=== PATIENT | male | born 1990 | race Caucasian/White ===

== ENCOUNTER 2017-06-26 19:00 | Inpatient (IN) | payer MEDICAID, SELFPAY ==
[2017-06-26 19:03] VITALS: BP 123/88; PULSE 105; RESP 18; TEMP 37; O2SAT 97
--- NOTE | 2017-06-26 20:20 | ED.VISSUMM ---
- ER Visit Summary Date of Service: 06/26/17 Chief Complaint: Requesting detox for alcohol and drug abuse. History of Present Illness: The patient is a 26 M history of depression for which he was admitted to [facility] around . Patient states he presents today because looking for help for drug abuse primarily methamphetamines and also alcohol abuse. He denies any recent illness. He is chronically depressed but is not acutely suicidal at this time. Physical Examination: Well appearing young male. Vital signs are stable afebrile. Pulse ox 97% room air no signs of hypoxia. HEENT exam atraumatic. Pupils round reactive light. Neck nontender no lymphadenopathy. Lungs clear to auscultation bilaterally. Heart regular rhythm rate about 105 no murmur. Chest wall nontender. Abdomen soft nontender. He is moving all 4 extremities. There is no signs of injuries or lacerations. Back exam is normal. Neurologically is awake alert with no focal motor deficits. Test Results: [] Emergency Department Course and Treatment: I will speak to the hospitalist for possible admission for detox. Treatment Plan: [] Disposition: Admission Impression: History of drug and alcohol abuse requesting detox History of depression This note was generated with [employer] dictation software. It may contain incorrect words, spelling, and punctuation that were not noted in review of the chart prior to signing ED Disposition - Plan for ED Patient: Chief Complaint: Subst Abuse Referrals: Care Physician,No Primary [Primary Care Provider] -
--- NOTE | 2017-06-26 20:58 | HP.PCM_ITS ---
Problem List (1) Alcohol abuse Status: Acute (2) Cocaine abuse Status: Chronic (3) Methamphetamine abuse Status: Chronic (4) Heroin abuse Status: Chronic (5) Antisocial personality disorder Status: Chronic (6) Depression Status: Chronic History of Present Illness Date of Admission: 06/26/17 Chief Complaint: requesting detox from drugs and alcohol The patient is a 26 year old male patient who presents to the ER for assistance with drug and alcohol rehabilitation. He last consumed six sots of alcohol at noon today. He drinking daily up to 30 beers and/or a bottle of hard liquor and drinks until he blacks out daily. He gets the shakes after not consuming alcohol. The patient was discharged from [facility] one and a half weeks ago for depression and suicidal thinking. Today he admits to having depressive thought but denies active intent to harm himself or others. He last consumed methamphetamine, cocaine and heroine one month ago. He currently takes Zyprexa and Prozac for his psychiatric diagnoses. He will enter the [facility] program. Past Medical History Past Medical History (Chronic Problems): Chronic Problems Cocaine abuse (Chronic) Methamphetamine abuse (Chronic) Heroin abuse (Chronic) Antisocial personality disorder (Chronic) Depression (Chronic) Allergies Penicillins Allergy (Verified 12/01/15 12:46) Rash Home Medications: Ambulatory Orders Medication Instructions Recorded Fluoxetine [Prozac] 20 mg PO DAILY 06/26/17 Olanzapine [Zyprexa] 10 mg PO BID 06/26/17 Lives: Homeless Smoking Status: Current every day smoker Alcohol: Heavy - *Family History Maternal History Items: No pertinent history Review of Systems Constitutional: Denies: Chills, Fever, Weight Change HEENT: Denies: Head Aches, Sinus Congestion, Sinus Drainage Cardiovascular: Denies: Chest Pain, Palpitations Respiratory: Denies: Cough, Shortness of breath at rest, Sputum production Gastrointestinal: Denies: Abdominal Pain, Nausea, Vomiting Genitourinary: Denies: Dysuria Musculoskeletal: Denies: Joint Pain, Joint Tenderness Skin: Denies: Rash, Wounds Neurological: Denies: Numbness, Tingling, Focal weakness Psychiatric: Reports: Anxiety, Depression, Suicidal Ideations - no intent at this time. Denies: Homicidal Ideations Hematologic/ Lymphatic: Denies: Easy Bruising, Easy Bleeding VTE Information - Inpt Only VTE Present on Admission: No VTE Mechan Device Prophylaxis: None VTE Pharm Prophylaxis ordered?: No Patient Problems: Active and Suspected Problems Alcohol abuse (Acute) - Physical Exam General: Alert, Oriented x3, Cooperative HEENT: Atraumatic, Normocephalic Neck: Supple Lungs: Clear to auscultation, Normal air movement Cardiovascular: Regular rate, No murmurs Abdomen: Bowel Sounds Present, Soft, Non Tender Extremities: No edema, Capillary Refill Less than 3 Seconds Skin: No rashes, No breakdown Musculoskeletal: No Tenderness to Palpation of Joints or Extremities Neurological: Neuro grossly intact Psych/Mental Status: Appropriate, Depressed Vital Signs Temp Pulse Resp BP Pulse Ox 98.6 F 105 H 18 123/88 H 97 06/26/17 19:03 06/26/17 19:03 06/26/17 19:03 06/26/17 19:03 06/26/17 19:03 Oxygen Delivery Method Room Air Weight: 140 lb Body Mass Index (BMI) 20.0 Assessment/Plan Active and Suspected Problems Alcohol abuse (Acute) Chronic Problems Cocaine abuse (Chronic) Methamphetamine abuse (Chronic) Heroin abuse (Chronic) Antisocial personality disorder (Chronic) Depression (Chronic) Plan - admit to general medical floor - consult [facility] counselor - CIWA protocol including benzodiazepine, Thiamine and folate - Pt reminded this is voluntary and agrees to go through the detoxification process. - continue zyprexa and prozac - CBC, BMP and SLIV
[2017-06-26 21:48] VITALS: BP 121/77; BP 121/87; PULSE 87; RESP 14; RESP 18; TEMP 36.7; O2SAT 98
[2017-06-26 22:30] VITALS: BMI 20.9
[2017-06-26 22:34] VITALS: BP 116/63; PULSE 68; RESP 16; TEMP 36.4
[2017-06-26 22:39] LABS: AST(SGOT) 47 U/L (15-37); Alanine Aminotransfer ALT/SGPT 81 U/L (12-78); Albumin, Serum 3.7 g/dL (3.4-5.0); Alkaline Phosphatase 76 U/L (45-117); Bilirubin, Direct 0.05 mg/dL (0.00-0.30); Globulin 3.8 g/dL (2.2-4.2); Glucose 109 mg/dL (70-110); Protein, Total 7.5 g/dL (6.4-8.2)
[2017-06-26 22:44] VITALS: BMI 20.9
[2017-06-26 22:50] LABS: Alcohol, Blood (Medical)-Serum < 3.0 mg/dL
[2017-06-26 22:50] LABS: Amphetamine Urine VISTA NEGATIVE (<1000 ng/mL); Barbiturate Urine VISTA NEGATIVE (< 200 ng/mL); Benzodiazepine Urine VISTA NEGATIVE (< 200 ng/mL); Cocaine Urine VISTA NEGATIVE (< 300 ng/mL); Ecstacy Urine VISTA NEGATIVE (< 500 ng/mL); Methadone Urine VISTA NEGATIVE (< 300 ng/mL); PCP Urine VISTA NEGATIVE (< 25 ng/mL); THC Urine VISTA POSITIVE (< 50 ng/mL); Vista UDS pH Range 6
[2017-06-27] MEDS: LORazepam 1 MG Tablet 2 MG PO ×4 (04:00→20:59)
[2017-06-27] MEDS: 0.9% NaCl Peripheral Flush Adult/Peds IV (04:00)
[2017-06-27 04:02] VITALS: BP 107/65; PULSE 77; RESP 16; TEMP 36.1
[2017-06-27 09:08] VITALS: BP 113/66; PULSE 67; RESP 16; TEMP 36.5; O2SAT 100
[2017-06-27] MEDS: Folic Acid 1 MG Tablet PO (09:13)
[2017-06-27] MEDS: OLANZapine 10 MG Tablet PO ×2 (09:13→21:00)
[2017-06-27] MEDS: Thiamine Hydrochloride 100 MG Tablet PO ×2 (09:13→18:26)
[2017-06-27] MEDS: FLUoxetine 20 MG Capsule PO (09:13)
--- NOTE | 2017-06-27 11:04 | PN_ITS ---
<Judy Briseno - Last Filed: 06/27/17 11:04> Patient Problems: Active and Suspected Problems Alcohol abuse (Acute) Subjective: Patient seen and examined. Resting in bed in no acute distress. He is drowsy and falling asleep during conversation. Complains of mild muscle cramping and anxiety. Denies nausea, vomiting. Denies suicidal thoughts. Denies other complaints. - Physical Exam General: Cooperative, No apparent distress, - - Drowsy HEENT: Atraumatic, PERRLA, EOMI, Normocephalic Neck: Supple, No JVD, Negative Carotid Bruits Lungs: Clear to auscultation, Normal air movement Cardiovascular: Regular rate, Regular Rhythm, Normal S1, Normal S2, No murmurs Abdomen: Bowel Sounds Present, Soft, Non Tender Extremities: No clubbing, No cyanosis, No edema, Capillary Refill Less than 3 Seconds Skin: No rashes, No breakdown Musculoskeletal: No Tenderness to Palpation of Joints or Extremities Neurological: Cranial nerves II-XII grossly intact, Neuro grossly intact Psych/Mental Status: Normal Affect, Appropriate Vital Signs Temp Pulse Resp BP Pulse Ox 97.7 F L 67 16 113/66 100 06/27/17 09:08 06/27/17 09:08 06/27/17 09:08 06/27/17 09:08 06/27/17 09:08 Oxygen Delivery Method Room Air Weight: 66.1 kg Body Mass Index (BMI) 20.9 Intake and Output for Last 24 Hours 06/25/17 06/26/17 06/27/17 23:59 23:59 23:59 Intake Total 250 / 250 Balance 250 / 250 Assessment/Plan Active and Suspected Problems Alcohol abuse (Acute) Patient is a 26-year-old male admitted 06/26/2017 due to withdrawal from multi- substance abuse. He has a past medical history of antisocial personality disorder and depression. 1. Acute alcohol withdrawal/alcohol abuse-CIWA protocol. Continue thiamine, folic acid, and multivitamin. AST/ALT slightly elevated. 2. Acute opioid withdrawal/opioid abuse/multi-substance abuse-urine tox screen positive for cannabinoids. Medical stabilization per protocol. Patient states he is working with [facility] to be admitted to inpatient treatment program at discharge. Currently having only mild withdrawal symptoms of mild muscle cramps and anxiety. 3. Antisocial personality disorder/depression-continue fluoxetine and olanzapine. 4. Recent inpatient admission for depression/suicidal ideations-denies current suicidal thoughts. Continue to monitor. DVT prophylaxis-SCDs. This patient was seen by NIGEL Ring under the supervision of Dr. Woodruff. <Richard Woodruff - Last Filed: 06/27/17 16:31> - Physical Exam General: Cooperative, No apparent distress, - - Drowsy. Nearly dozes off several times during the encounter. HEENT: Atraumatic, Normocephalic Lungs: Clear to auscultation, Normal air movement, No rhonchi, No wheeze Cardiovascular: Regular rate, Regular Rhythm, Normal S1, Normal S2 Abdomen: Bowel Sounds Present, Soft, Non Tender, Non-Distended Extremities: No edema, No Calf Tenderness Psych/Mental Status: Normal Affect, Appropriate Vital Signs Temp Pulse Resp BP Pulse Ox 36.5 C L 77 18 114/68 99 06/27/17 13:30 06/27/17 13:30 06/27/17 13:30 06/27/17 13:30 06/27/17 13:28 Oxygen Delivery Method Room Air Weight: 66.1 kg Body Mass Index (BMI) 20.9 Intake and Output for Last 24 Hours 06/25/17 06/26/17 06/27/17 23:59 23:59 23:59 Intake Total 730 / 730 Balance 730 / 730 Assessment/Plan Patient seen and examined independently. Agree with the above note by the nurse practitioner. 1. Acute alcohol withdrawal: Patient on medical stabilization protocol with Ativan. Patient not in florid alcohol withdrawal or DTs at this time. Patient states that he has was drinking a bottle of 70 proof liquor daily. Clinically the patient is appearing very stable at this time. Patient will continue to be monitored to see if there is any regression or if patient is remaining stable or improving. Will reevaluate on the and based on his withdrawal symptoms disposition will be determined on a daily basis. Code Visit Inpatient E&M: 17300 Subs Hosp L2
[2017-06-27 13:28] VITALS: BP 114/68; PULSE 77; RESP 18; TEMP 36.5; O2SAT 99
[2017-06-27 13:30] VITALS: BP 114/68; PULSE 77; RESP 18; TEMP 36.5
[2017-06-27 18:33] VITALS: BP 114/68; PULSE 77; RESP 18; TEMP 36.5
[2017-06-27 20:58] VITALS: BP 116/76; PULSE 100; RESP 16; TEMP 36.7
[2017-06-28] VITALS (8 sets, daily range): BP systolic 110–136; BP diastolic 67–82; PULSE 79–116; RESP 16–18; TEMP 35.8–37.3; O2SAT 97–98
[2017-06-28] MEDS: LORazepam 1 MG Tablet 2 MG PO ×2 (02:27→09:07)
[2017-06-28] MEDS: Folic Acid 1 MG Tablet PO (09:06)
[2017-06-28] MEDS: Thiamine Hydrochloride 100 MG Tablet PO ×2 (09:07→17:40)
[2017-06-28] MEDS: Multivitamins,Therapeutic Tablet 1 TABLET PO (09:07)
[2017-06-28] MEDS: OLANZapine 10 MG Tablet PO ×2 (09:07→21:19)
[2017-06-28] MEDS: FLUoxetine 20 MG Capsule PO (09:07)
--- NOTE | 2017-06-28 10:14 | PCM.DC ---
- Discharge Diagnoses Current Active Problems: Current Active and Chronic Problems Alcohol abuse (Acute) Cocaine abuse (Chronic) Methamphetamine abuse (Chronic) Heroin abuse (Chronic) Antisocial personality disorder (Chronic) Depression (Chronic) You will use the following diet at home:: No restrictions Discharge Activity: Return to Normal Activity Call your doctor if you observe: Shortness of breath, Dizziness, Fainting spells, Chest pain, Increased palpitations (irregular heartbeat) Allergies/Adverse Reactions: Allergies Penicillins Allergy (Verified 12/01/15 12:46) Rash Medications to take at Discharge Fluoxetine [Prozac] 20 mg PO DAILY 06/26/17 Olanzapine [Zyprexa] 10 mg PO BID 06/26/17 Primary Care Physician: Care Physician,No Primary [Primary Care Provider] - Please follow up with your Primary Care Physician in: 1-2 Weeks Proposed Discharge Date: 06/28/17
--- NOTE | 2017-06-28 10:19 | DCINST_ITS ---
- Discharge Diagnoses Current Active Problems: Current Active and Chronic Problems Alcohol abuse (Acute) Cocaine abuse (Chronic) Methamphetamine abuse (Chronic) Heroin abuse (Chronic) Antisocial personality disorder (Chronic) Depression (Chronic) You will use the following diet at home:: No restrictions Discharge Activity: Return to Normal Activity Call your doctor if you observe: Shortness of breath, Dizziness, Fainting spells , Chest pain, Increased palpitations (irregular heartbeat) Allergies/Adverse Reactions: Allergies Penicillins Allergy (Verified 12/01/15 12:46) Rash Medications to take at Discharge Fluoxetine [Prozac] 20 mg PO DAILY 06/26/17 Olanzapine [Zyprexa] 10 mg PO BID 06/26/17 Primary Care Physician: Care Physician,No Primary [Primary Care Provider] - Please follow up with your Primary Care Physician in: 1-2 Weeks Proposed Discharge Date: 06/28/17
--- NOTE | 2017-06-28 10:20 | PCM.DC.SUM ---
<Judy Briseno - Last Filed: 06/28/17 10:28> Discharge Date and Diagnosis - Problem List Patient Problems: Active and Suspected Problems Alcohol abuse (Acute) Date of Admission: 06/26/17 Date of Discharge: 06/28/17 - Primary Discharge Diagnosis Active and Suspected Problems 1. Acute alcohol withdrawal/alcohol abuse 2. Opioid abuse/multi-substance abuse - Secondary Discharge Diagnosis Chronic Problems Cocaine abuse (Chronic) Methamphetamine abuse (Chronic) Heroin abuse (Chronic) Antisocial personality disorder (Chronic) Depression (Chronic) Hospital Course and Treatment Operations: None Procedures: None Summary of Care Provided: Patient is a 26-year-old male admitted 06/26/2017 due to withdrawal from multi-substance abuse. He has a past medical history of antisocial personality disorder and depression. 1. Acute alcohol withdrawal/alcohol abuse-CIWA 0 at discharge. No active withdrawal symptoms. Patient's plan is to admit himself into inpatient rehab following discharge from hospital. 2. Opioid abuse/multi-substance abuse-urine tox screen positive for cannabinoids. Medical stabilization per protocol. No recent opioid use. 3. Antisocial personality disorder/depression-continue fluoxetine and olanzapine. 4. Recent inpatient admission for depression/suicidal ideations-denies current suicidal thoughts. General: Cooperative, No apparent distress HEENT: Atraumatic, PERRLA, EOMI, Normocephalic Neck: Supple, No JVD, Negative Carotid Bruits Lungs: Clear to auscultation, Normal air movement Cardiovascular: Regular rate, Regular Rhythm, Normal S1, Normal S2, No murmurs Abdomen: Bowel Sounds Present, Soft, Non Tender Extremities: No clubbing, No cyanosis, No edema, Capillary Refill Less than 3 Seconds Skin: No rashes, No breakdown Musculoskeletal: No Tenderness to Palpation of Joints or Extremities Neurological: Cranial nerves II-XII grossly intact, Neuro grossly intact Psych/Mental Status: Normal Affect, Appropriate Patient seen and examined prior to discharge. Physical assessment as noted above. No active withdrawal symptoms. Patient is stable for discharge. He plans on arranging and patient rehab in the near future. [facility] program assisting patient with and patient rehab options prior to discharge. This patient was seen by NIGEL Ring under the supervision of Dr. Woodruff. Discharge Diet: No Restrictions Discharge Activity: Return to Normal Activity Call your doctor if you observe: Shortness of breath, Dizziness, Fainting spells, Chest pain, Increased palpitations (irregular heartbeat) Home Medications: Medications to take at Discharge Fluoxetine [Prozac] 20 mg PO DAILY 06/26/17 Olanzapine [Zyprexa] 10 mg PO BID 06/26/17 Primary Care Physician: Care Physician,No Primary [Primary Care Provider] - Please follow up with your Primary Care Physician in: 1-2 Weeks Disposition: Home Minutes spent on discharge:: 35 Patient Condition:: Stable Meaningful Use Info Meaningful Use Diagnoses (Choose all that apply): None applicable <Richard Woodruff - Last Filed: 06/28/17 16:23> Discharge Date and Diagnosis - Secondary Discharge Diagnosis Chronic Problems Cocaine abuse (Chronic) Methamphetamine abuse (Chronic) Heroin abuse (Chronic) Antisocial personality disorder (Chronic) Depression (Chronic) Hospital Course and Treatment Operations: None Procedures: None Summary of Care Provided: Patient seen and examined independently. Agree with the above note by the nurse practitioner. 26-year-old white male presents for desire to withdrawal from alcohol. Patient's hospitalization was unremarkable and no events. Patient did not go through any severe alcohol withdrawal symptoms nor delirium tremens. Patient was initiated on the CIWA protocol. The patient was monitored did not have any regression and the patient will be discharged and the patient will check himself into an inpatient rehab facility. Physical exam patient is no acute distress and afebrile. Heart is regular in rhythm plus S1-S2 without murmurs capture rubs. Lungs are clear to auscultation bilaterally. [] Discharge Diet: No Restrictions Discharge Activity: Return to Normal Activity Call your doctor if you observe: Shortness of breath, Dizziness, Fainting spells, Chest pain, Increased palpitations (irregular heartbeat) Disposition: Home Minutes spent on discharge:: 35 Patient Condition:: Stable Meaningful Use Info Meaningful Use Diagnoses (Choose all that apply): None applicable Code Visit Inpatient E&M: 89919 Disch Hosp
--- NOTE | 2017-06-28 10:27 | DS.PCM_ITS ---
<Judy Briseno - Last Filed: 06/28/17 10:28> Discharge Date and Diagnosis - Problem List Patient Problems: Active and Suspected Problems Alcohol abuse (Acute) Date of Admission: 06/26/17 Date of Discharge: 06/28/17 - Primary Discharge Diagnosis Active and Suspected Problems 1. Acute alcohol withdrawal/alcohol abuse 2. Opioid abuse/multi-substance abuse - Secondary Discharge Diagnosis Chronic Problems Cocaine abuse (Chronic) Methamphetamine abuse (Chronic) Heroin abuse (Chronic) Antisocial personality disorder (Chronic) Depression (Chronic) Hospital Course and Treatment Operations: None Procedures: None Summary of Care Provided: Patient is a 26-year-old male admitted 06/26/2017 due to withdrawal from multi- substance abuse. He has a past medical history of antisocial personality disorder and depression. 1. Acute alcohol withdrawal/alcohol abuse-CIWA 0 at discharge. No active withdrawal symptoms. Patient's plan is to admit himself into inpatient rehab following discharge from hospital. 2. Opioid abuse/multi-substance abuse-urine tox screen positive for cannabinoids. Medical stabilization per protocol. No recent opioid use. 3. Antisocial personality disorder/depression-continue fluoxetine and olanzapine. 4. Recent inpatient admission for depression/suicidal ideations-denies current suicidal thoughts. General: Cooperative, No apparent distress HEENT: Atraumatic, PERRLA, EOMI, Normocephalic Neck: Supple, No JVD, Negative Carotid Bruits Lungs: Clear to auscultation, Normal air movement Cardiovascular: Regular rate, Regular Rhythm, Normal S1, Normal S2, No murmurs Abdomen: Bowel Sounds Present, Soft, Non Tender Extremities: No clubbing, No cyanosis, No edema, Capillary Refill Less than 3 Seconds Skin: No rashes, No breakdown Musculoskeletal: No Tenderness to Palpation of Joints or Extremities Neurological: Cranial nerves II-XII grossly intact, Neuro grossly intact Psych/Mental Status: Normal Affect, Appropriate Patient seen and examined prior to discharge. Physical assessment as noted above. No active withdrawal symptoms. Patient is stable for discharge. He plans on arranging and patient rehab in the near future. [facility] program assisting patient with and patient rehab options prior to discharge. This patient was seen by NIGEL Ring under the supervision of Dr. Woodruff. Discharge Diet: No Restrictions Discharge Activity: Return to Normal Activity Call your doctor if you observe: Shortness of breath, Dizziness, Fainting spells , Chest pain, Increased palpitations (irregular heartbeat) Home Medications: Medications to take at Discharge Fluoxetine [Prozac] 20 mg PO DAILY 06/26/17 Olanzapine [Zyprexa] 10 mg PO BID 06/26/17 Primary Care Physician: Care Physician,No Primary [Primary Care Provider] - Please follow up with your Primary Care Physician in: 1-2 Weeks Disposition: Home Minutes spent on discharge:: 35 Patient Condition:: Stable Meaningful Use Info Meaningful Use Diagnoses (Choose all that apply): None applicable <Richard Woodruff - Last Filed: 06/28/17 16:23> Discharge Date and Diagnosis - Secondary Discharge Diagnosis Chronic Problems Cocaine abuse (Chronic) Methamphetamine abuse (Chronic) Heroin abuse (Chronic) Antisocial personality disorder (Chronic) Depression (Chronic) Hospital Course and Treatment Operations: None Procedures: None Summary of Care Provided: Patient seen and examined independently. Agree with the above note by the nurse practitioner. 26-year-old white male presents for desire to withdrawal from alcohol. Patient' s hospitalization was unremarkable and no events. Patient did not go through any severe alcohol withdrawal symptoms nor delirium tremens. Patient was initiated on the CIWA protocol. The patient was monitored did not have any regression and the patient will be discharged and the patient will check himself into an inpatient rehab facility. Physical exam patient is no acute distress and afebrile. Heart is regular in rhythm plus S1-S2 without murmurs capture rubs. Lungs are clear to auscultation bilaterally. [] Discharge Diet: No Restrictions Discharge Activity: Return to Normal Activity Call your doctor if you observe: Shortness of breath, Dizziness, Fainting spells , Chest pain, Increased palpitations (irregular heartbeat) Disposition: Home Minutes spent on discharge:: 35 Patient Condition:: Stable Meaningful Use Info Meaningful Use Diagnoses (Choose all that apply): None applicable Code Visit Inpatient E&M: 15553 Disch Hosp
--- NOTE | 2017-06-28 15:47 | CHAPLAIN ---
Type of Pastoral Visit _x__ Initial Visit ___ Follow-up Visit ___ On-call Visit ___ General Patient Visit ___ Spiritual Assessment ___ Family Conference ___ Bereavement ___ Rapid Response ___ Code Blue ___ Other (describe below) Pastoral Care Referral From _x__ Patient ___ Family ___ Nurse ___ Physician ___ Immigration Services Officer ___ Highway Landscape Architect ___ Other (describe below) Sacrament/Intervention _x__ Active listening ___ Anointing ___ Baptist ___ Bereavement ___ Communion _x__ Lashell exploration ___ _x__ Life review _x__ Prayer ___ Reconciliation ___ Sacrament of Sick _x__ Supportive presence ___ Wedding ___ Other (describe below) Pastoral Comments this service desk specialist made introduction and offer of support which was then openly received by patient; pt is talkative and very philosophical about life; pt says he wants to understand himself and others and his main interest is Psychology; that was lead in point for longer discussion about life, love, and lashell; pt says that he does not have feelings anymore and has not cried in a very long time; pt reports some history at mental health facilities and says I would like to go back there and talk to the doctors about what I think;
--- NOTE | 2017-06-28 17:50 | NURSING ---
this RN entered room to give 1700 meds. as this RN was speaking with him, he expressed a desire to be pink slipped back to [place]. this RN asked why he wanted to be pinked slipped and pt stated that he was scared he was going to hurt himself or others. this RN asked if he felt like he should hurt himself or others and pt verbalized that yes, he did feel that way and either himself or someone else. stated that he has felt this way for the last 2 weeks. asked how pt would harm self and he pulled 2 bottles of home medications from his pocket. stated he thought about taking these: prozac and zyprexa. RN asked to hold on to them for pt to keep him safe, collected and locked in med drawer. primary RN notified and notified. sitter placed in room at this time. ADILIA Mensah calling for crisis consult.
--- NOTE | 2017-06-28 17:58 | NURSING ---
Nati from Crisis center over in ICU seeing a patient- updated on crisis consult for said pt- pt requesting he be pinkslipped to [facility].
--- NOTE | 2017-06-29 00:08 | NURSING ---
SITTER REMAINS WITH PT. CRISES EVALUATED & PT HAS BEEN PINK SLIPPED AWAITING BED. PT RESTING CALMLY & QUIETLY WATCHING TV & TALKING WITH WASHING MACHINE LOADER IN ROOM.
--- NOTE | 2017-06-29 00:19 | EKG12_ITS ---
Test Reason : AM EKG Blood Pressure : / mmHG Vent. Rate : 074 BPM Atrial Rate : 074 BPM P-R Int : 156 ms QRS Dur : 100 ms QT Int : 388 ms P-R-T Axes : 050 077 033 degrees QTc Int : 430 ms Normal sinus rhythm Normal ECG No previous ECGs available Confirmed by AUGUSTIN TAI, KARLA ([id number]), editor & co founder JAYY SCHOFIELD ([id number] on 07/11/2017 8:53:27 AM Referred By: NINI Confirmed By:KARLA RUFFIN MD
--- NOTE | 2017-06-29 00:21 | NURSING ---
NURSING SUPV AWARE THAT PT HAS BEEN PINK SLIPPED. SITTER CONTINUES TO SIT IN ROOM WITH PT.
--- NOTE | 2017-06-29 00:38 | NURSING ---
PT AWARE OF PLAN TO GO TO [facility] WHEN BED BECOMES AVAILABLE AND IS IN AGREEMENT THAT HE NEEDS ADDITIONAL MENTAL HEALTH HELP
[2017-06-29 00:45] LABS: Bacteria 0 SEEN /hpf (None Seen); Mucous, Urine 0 SEEN /hpf (<or=2+); Red Blood Cells-Urine 0 SEEN /hpf (0-5); White Blood Cells 0 SEEN /hpf (0-5)
[2017-06-29 00:48] LABS: Color, Urine Yellow (Yellow); Glucose, Dipstick Normal (Normal); Ketone-Dipstick Negative (Negative); Leukocyte Esterase-Dipstick Negative /ul (Negative); Nitrite-Dipstick Negative (Negative); Occult Blood-Urine Negative /ul (Negative); Protein-Dipstick Negative (Negative); Urine Bilirubin Dipstick Negative (Negative); Urine Clarity Sl. Cloudy (Clear); Urine Urobilinogen Normal (Normal)
[2017-06-29 00:54] LABS: Squamous Epithelial Cells - UA 0-5 SEEN /hpf (0-5)
[2017-06-29 01:27] LABS: Absolute Lymphocyte Count 2.71 X10^3/ul (0.83-4.51); Absolute Neutrophil Count 4.6 X10^3/uL (2.0-7.7); Basophil# 0.03 X10^3/uL; Basophil% 0.4 % (0-1); Eosinophil# 0.13 X10^3/uL; Eosinophils% 1.6 % (0-5); Hematocrit 42.4 % (40-54); Hemoglobin 15.1 g/dl (13.0-16.5); Lymphocyte # 2.71 X10^3/ul (4.0); Mean Corp Hgb Conc 35.6 g/gl (32-36); Mean Corpuscular Hgb 31.7 pg (27.0-32.0); Mean Corpuscular Volume 89.1 fL (80-94); Mean Platelet Vol. 9.1 fl (6.2-12.0); Monocyte# 0.46 X10^3/uL; Monocyte% 5.8 % (0-10); Neutrophil % 57.6 % (47-70); Platelet Count 314 K/mm3 (150-450); RBC Distribution Width CV 11.7 % (11.6-14.6); RBC Distribution Width SD 37.3 fl (35.1-43.9); Red Blood Count 4.76 M/mm3 (4.6-6.2)
[2017-06-29 01:28] LABS: POSITIVE COUNT NO; POSITIVE DIFFERENTIAL NO; POSITIVE MORPHOLOGY NO
[2017-06-29 01:33] LABS: AST(SGOT) 25 U/L (15-37); Alanine Aminotransfer ALT/SGPT 69 U/L (12-78); Albumin, Serum 3.6 g/dL (3.4-5.0); Alkaline Phosphatase 79 U/L (45-117); Anion Gap 10 (5-15); BUN 16 mg/dL (7-18); BUN/Creat Ratio 17.5 RATIO (10-20); Calcium,Total 8.7 mg/dL (8.5-10.1); Chloride 106 mmol/L (98-107); Creatinine, Serum 0.91 mg/dL (0.70-1.30); EST Glomerular Filtration Rate 108 mL/min (>60); Est Glom Filt Rate - Afr Amer 131 mL/min (>60); Estimated Creatinine Clearance 117.03 ml/min; Globulin 3.7 g/dL (2.2-4.2); Glucose 159 mg/dL (70-110); Potassium 3.4 mmol/L (3.5-5.1); Protein, Total 7.3 g/dL (6.4-8.2); Sodium Level 142 mmol/L (136-145)
[2017-06-29 05:55] VITALS: BP 126/87; PULSE 80; RESP 14; TEMP 36.6; O2SAT 99
--- NOTE | 2017-06-29 06:26 | NURSING ---
PAPERWORK FAXED TO [facility]. NO ONE TO REVIEW CASE UNTIL LATER THIS MORNING AROUND 0830 PER CRISIS.
--- NOTE | 2017-06-29 09:29 | PCM.PN.HOSP ---
Patient Problems: Active and Suspected Problems Alcohol abuse (Acute) Subjective: Patient stated that he want to kill himself before he went out of [facility]. With that patient's benzodiazepines were discontinued. Patient is manifested no further signs or symptoms or alcohol withdrawal or delirium tremens. Patient states that he wants to go to alcohol rehab. Does not elaborate further García 83 to kill himself. Vitals/I&O's: Vital Signs Temp Pulse Resp BP Pulse Ox 36.6 C 80 14 126/87 H 99 06/29/17 05:55 06/29/17 05:55 06/29/17 05:55 06/29/17 05:55 06/29/17 05:55 Oxygen Delivery Method Room Air Weight: 66.1 kg Body Mass Index (BMI) 20.9 Intake and Output for Last 24 Hours 06/27/17 06/28/17 06/29/17 23:59 23:59 23:59 Intake Total 1310 / 1310 Balance 1310 / 1310 General: Alert, Cooperative, No apparent distress HEENT: Atraumatic, Normocephalic Psych/Mental Status: Appropriate, Flat Affect Laboratory Results 06/29/17 00:27: Urine Color Yellow, Urine Clarity Sl. Cloudy, Urine pH 6.0, Ur Specific [place] 1.020, Urine Protein Negative, Urine Glucose (UA) Normal, Urine Ketones Negative, Urine Occult Blood Negative, Urine Nitrite Negative, Urine Bilirubin Negative, Urine Urobilinogen Normal, Ur Leukocyte Esterase Negative, Urine RBC 0 SEEN, Urine WBC 0 SEEN, Ur Squamous Epith Cells 0-5 SEEN, Urine Bacteria 0 SEEN, Urine Mucus 0 SEEN 06/29/17 01:06: WBC 8.0, RBC 4.76, Hgb 15.1, Hct 42.4, MCV 89.1, MCH 31.7, MCHC 35.6, RDW 11.7, RDW Differential 37.3, Plt Count 314, MPV 9.1, Immature Gran % (Auto) 0.600, Neut % (Auto) 57.6, Lymph % (Auto) 34.0, [place] % (Auto) 5.8, Eos % (Auto) 1.6, Baso % (Auto) 0.4, Absolute Neuts (auto) 4.6, Absolute Lymphs (auto) 2.71, Total Counted Not Reportable 06/29/17 01:06: Sodium 142, Potassium 3.4 L, Chloride 106, Carbon Dioxide 26.0, Anion Gap 10, BUN 16, Creatinine 0.91, Estim Creat Clear Calc 117.03, Est GFR (MDRD) Af Amer 131, Est GFR (MDRD) Non-Af 108, BUN/Creatinine Ratio 17.5, Glucose 159 H, Calcium 8.7, Total Bilirubin 0.20, AST 25, ALT 69, Alkaline Phosphatase 79, Total Protein 7.3, Albumin 3.6, Globulin 3.7, Albumin/Globulin Ratio 1.0 Current Medications Fluoxetine HCl (Prozac) 20 mg PO DAILY [facility] Last Admin: 06/28/17 09:07 Dose: 20 mg Magnesium Hydroxide (Milk Of Magnesia) 30 ml PO DAILY PRN PRN PRN Reason: Constipation [facility] Admin: 06/28/17 09:07 Dose: 1 tablet Olanzapine (Zyprexa) 10 mg PO BID [facility] Last Admin: 06/28/17 21:19 Dose: 10 mg Sodium Chloride () 5 - 30 ml IV UD PRN PRN Reason: SALINE FLUSH Last Admin: 06/27/17 04:00 Dose: 10 ml Thi[facility]itamin B[facility]) [facility] Stop: 06/29/17 17:01 Last Admin: 06/28/17 17:40 Dose: 100 mg Assessment/Plan Active and Suspected Problems Alcohol abuse (Acute) 1. alcohol abuse: Patient may drink excessively but he never had a severe alcohol withdrawal symptoms nor any delirium tremens. Patient states that he drinks 1/5 of liquor a day which is high proved. Unfortunately I am finding these suggestions suspect at best. Patient is not in any withdrawal nor delirium tremens. 2. Suicidal ideation I am not clear the patient is actually suicidal or not but patient has a sitter at bedside and currently waiting on crisis to see him. May have been malingering that he was doing to get more attention her to get what he wanted it is unclear but crisis will need to see him and either side or clear him for discharge. Code Visit Inpatient E&M: 46509 Subs Hosp L2
--- NOTE | 2017-06-29 09:32 | PN_ITS ---
Patient Problems: Active and Suspected Problems Alcohol abuse (Acute) Subjective: Patient stated that he want to kill himself before he went out of [facility]. With that patient's benzodiazepines were discontinued. Patient is manifested no further signs or symptoms or alcohol withdrawal or delirium tremens. Patient states that he wants to go to alcohol rehab. Does not elaborate further García 83 to kill himself. Vitals/I&O's: Vital Signs Temp Pulse Resp BP Pulse Ox 36.6 C 80 14 126/87 H 99 06/29/17 05:55 06/29/17 05:55 06/29/17 05:55 06/29/17 05:55 06/29/17 05:55 Oxygen Delivery Method Room Air Weight: 66.1 kg Body Mass Index (BMI) 20.9 Intake and Output for Last 24 Hours 06/27/17 06/28/17 06/29/17 23:59 23:59 23:59 Intake Total 1310 / 1310 Balance 1310 / 1310 General: Alert, Cooperative, No apparent distress HEENT: Atraumatic, Normocephalic Psych/Mental Status: Appropriate, Flat Affect Laboratory Results 06/29/17 00:27: Urine Color Yellow, Urine Clarity Sl. Cloudy, Urine pH 6.0, Ur Specific [place] 1.020, Urine Protein Negative, Urine Glucose (UA) Normal, Urine Ketones Negative, Urine Occult Blood Negative, Urine Nitrite Negative, Urine Bilirubin Negative, Urine Urobilinogen Normal, Ur Leukocyte Esterase Negative, Urine RBC 0 SEEN, Urine WBC 0 SEEN, Ur Squamous Epith Cells 0-5 SEEN, Urine Bacteria 0 SEEN, Urine Mucus 0 SEEN 06/29/17 01:06: WBC 8.0, RBC 4.76, Hgb 15.1, Hct 42.4, MCV 89.1, MCH 31.7, MCHC 35.6, RDW 11.7, RDW Differential 37.3, Plt Count 314, MPV 9.1, Immature Gran % ( Auto) 0.600, Neut % (Auto) 57.6, Lymph % (Auto) 34.0, [place] % (Auto) 5.8, Eos % ( Auto) 1.6, Baso % (Auto) 0.4, Absolute Neuts (auto) 4.6, Absolute Lymphs (auto) 2.71, Total Counted Not Reportable 06/29/17 01:06: Sodium 142, Potassium 3.4 L, Chloride 106, Carbon Dioxide 26.0, Anion Gap 10, BUN 16, Creatinine 0.91, Estim Creat Clear Calc 117.03, Est GFR ( MDRD) Af Amer 131, Est GFR (MDRD) Non-Af 108, BUN/Creatinine Ratio 17.5, Glucose 159 H, Calcium 8.7, Total Bilirubin 0.20, AST 25, ALT 69, Alkaline Phosphatase 79, Total Protein 7.3, Albumin 3.6, Globulin 3.7, Albumin/Globulin Ratio 1.0 Current Medications Fluoxetine HCl (Prozac) 20 mg PO DAILY [facility] Last Admin: 06/28/17 09:07 Dose: 20 mg Magnesium Hydroxide (Milk Of Magnesia) 30 ml PO DAILY PRN PRN PRN Reason: Constipation [facility] Last Admin: 06/28/17 09:07 Dose: 1 tablet Olanzapine (Zyprexa) 10 mg PO BID [facility] Last Admin: 06/28/17 21:19 Dose: 10 mg Sodium Chloride () 5 - 30 ml IV UD PRN PRN Reason: SALINE FLUSH Last Admin: 06/27/17 04:00 Dose: 10 ml Thiamine HCl (Vitamin B1) [facility] Stop: 06/29/17 17:01 Last Admin: 06/28/17 17:40 Dose: 100 mg Assessment/Plan Active and Suspected Problems Alcohol abuse (Acute) 1. alcohol abuse: Patient may drink excessively but he never had a severe alcohol withdrawal symptoms nor any delirium tremens. Patient states that he drinks 1/5 of liquor a day which is high proved. Unfortunately I am finding these suggestions suspect at best. Patient is not in any withdrawal nor delirium tremens. 2. Suicidal ideation I am not clear the patient is actually suicidal or not but patient has a sitter at bedside and currently waiting on crisis to see him. May have been malingering that he was doing to get more attention her to get what he wanted it is unclear but crisis will need to see him and either side or clear him for discharge. Code Visit Inpatient E&M: 08005 Subs Hosp L2
[2017-06-29] MEDS: Folic Acid 1 MG Tablet PO (10:30)
[2017-06-29] MEDS: FLUoxetine 20 MG Capsule PO (10:31)
[2017-06-29] MEDS: OLANZapine 10 MG Tablet PO ×2 (10:31→21:53)
[2017-06-29] MEDS: Thiamine Hydrochloride 100 MG Tablet PO (10:31)
[2017-06-29] MEDS: Multivitamins,Therapeutic Tablet 1 TABLET PO (10:31)
[2017-06-29 10:33] VITALS: BP 103/68; PULSE 74; RESP 16; TEMP 36.7; O2SAT 98
--- NOTE | 2017-06-29 13:21 | CASEMGMT ---
Addendum entered by Delmi Mirza 06/29/17 15:16: SW spoke w/Makenzie again, she called [facility], again. The physician has still not reviewed the clinical information on the pt. Makenzie gave this SW the number to [facility], . will continue to follow. ABUNDIO Narvaez, OUTSIDE RESIDENTIAL SALES PROFESSIONAL Original Note: Makenzie from crisis was here earlier, she called [facility]. She states they are reviewing pt's clinical information and are to call the nurse's station directly regarding this pt. ABUNDIO Narvaez, OUTSIDE RESIDENTIAL SALES PROFESSIONAL
--- NOTE | 2017-06-29 14:05 | PCA ---
pt is ind. with hygiene, but has been sleeping most of the day
[2017-06-29 16:30] VITALS: BP 129/81; PULSE 88; RESP 16; TEMP 37; O2SAT 100
--- NOTE | 2017-06-29 20:40 | NURSING ---
STAFF FROM [facility] CALLED ASKING FOR COPY OF THE THE PINK SLIP TO BE FAXED OVER. ALSO THAT THE PINK SLIP HAD TO BE DATED TODAY AND THAT THEY WOULD NOT EXPECT THE PINK SLIP SIGNED FOR LAST NIGHT. THIS RN SPOKE WITH RILEY FROM [facility] AND WAS TOLD TO RECOPY THE PINK SLIP AND HAVE THE HOSPITALIST SIGN IT.
[2017-06-29 21:51] VITALS: BP 125/82; PULSE 52; RESP 16; TEMP 36.6; O2SAT 98
== END 2017-06-29 23:15 | disposition designated cancer center or children's hospital (05) | DRG 435 ==
LOC: ED 20:26 → MS2 21:55
PROVIDERS: Family Medicine; Admitting Provider Family Medicine; Emergency Provider Emergency Medicine
DX: F10.239 Alcohol dependence with withdrawal, unspecified (principal); F11.10 Opioid abuse, uncomplicated; R45.851 Suicidal ideations; F32.9 Major depressive disorder, single episode, unspecified; F17.200 Nicotine dependence, unspecified, uncomplicated; F60.2 Antisocial personality disorder; Z59.0 Homelessness; F15.10 Other stimulant abuse, uncomplicated; F14.10 Cocaine abuse, uncomplicated
CPT/HCPCS: 36415; 80053; 80076; 80307; 80320; 81001; 82947; 85025; 93005; 99282; A4216; G0480

== ENCOUNTER 2018-12-23 13:46 | Emergency (ER) | payer MEDICAID, SELFPAY ==
[2018-12-23] VITALS (7 sets, daily range): BP systolic 131–138; BP diastolic 86–98; PULSE 73–120; RESP 12–18; TEMP 36.4; O2SAT 97–100
--- NOTE | 2018-12-23 14:08 | ED.DCSUM_ITS ---
History of Present Illness Chief Complaint: Suicidal Detail of Chief Complaint: Suicidal ideation Informant: Patient Onset: - - Patient reports suicidal thoughts for several years, but getting worse recently. Context: Gradual Onset Timing: Continuous Current Severity: Severe Maximum Severity: Severe Associated Symptoms: Depressed, Change in sleeping Narrative: Patient presents with suicidal ideation. He has plan to either jump from a bridge and get hit by a train or drink rat poison. He states he has had these thoughts for years, but they have become more severe recently. He states he has started saying his goodbyes to his friends. He reportedly has a birthday next week but states he has told himself that he is not a live long enough to see his next birthday. Patient was last hospitalized at [facility] in October. He has not taken any of his psych meds since that time. He reportedly talked to crisis today and then went to the ER to be seen. He is requesting rehab from his drug and alcohol abuse as well. When asked what drugs he takes he states anything that he can get his hands o He last used meth yesterday morning and last used heroin approximately week ago. His last alcoholic drink was last night around midnight. He states in the last week he has had 15 tall boys. He has gone through alcohol withdrawal in the past when he was drinking every day, but states he has not been drinking that much recently. Past Medical History - Allergies and Home Meds Allergies/Adverse Reactions: Allergies Penicillins Allergy (Verified 12/23/18 13:47) Rash Primary Care Physician: Care Physician,No Primary [Primary Care Provider] - Doctors: Previously seen at the counseling center Smoking Status: Current every day smoker Drugs: Heroin, - - Meth - Family History Maternal Family History: Reports: No pertinent history Review of Systems General: Denies: Chills, Fever Eyes: Denies: Visual changes - bilaterally ENT: Denies: Bilateral ear pain Cardiovascular: Denies: Chest pain Respiratory: Denies: Dyspnea, Cough Gastrointestinal: Denies: Abdominal pain, Nausea, Vomiting Genitourinary: Denies: Dysuria Musculoskeletal: Denies: Myalgias, Arthralgias Neurological: Denies: Headache Psych: Reports: Anxiety, Suicidal thoughts Hematologic: Denies: Easy bleeding Allergy: Denies: Uticaria Physical Exam Vital Signs/Narrative: Vital Signs Temp Pulse Resp BP Pulse Ox 12/23/18 13:48 97.6 F L 120 H 18 133/86 H 97 Inital Vital Signs reviewed: Yes General: Well nourished, Well developed Eyes: EOMI ENT: Moist mucous membranes Cardiovascular: Regular rate, Regular rhythm Respiratory: No distress, CTA bilaterally Abdomen: Soft, Nontender, Nondistended Skin: Normal color, No rash Neurological: Alert, Oriented x3 Psych: Normal Speech Pattern, Suicidal thoughts Diagnostic/Tx/Re-eval Laboratory Results 12/23/18 12/23/18 12/23/18 14:12 14:12 14:12 WBC 8.1 RBC 5.26 Hgb 16.8 H Hct 47.7 MCV 90.7 MCH 31.9 MCHC 35.2 RDW Std Deviation 37.8 RDW Coeff of Saeed 11.3 L Plt Count 263 MPV 9.1 Immature Gran % (Auto) 0.400 Neut % (Auto) 70.8 H Lymph % (Auto) 21.6 [place] % (Auto) 5.3 Eos % (Auto) 1.5 Baso % (Auto) 0.4 Absolute Neuts (auto) 5.8 Absolute Lymphs (auto) 1.76 Absolute Nucleated RBC 0.00 Nucleated RBC % 0 Sodium Potassium Chloride Carbon Dioxide Anion Gap BUN Creatinine Estim Creat Clear Calc Est GFR (MDRD) Af Amer Est GFR (MDRD) Non-Af BUN/Creatinine Ratio Glucose Calcium Total Bilirubin AST ALT Alkaline Phosphatase Total Protein Albumin Globulin Albumin/Globulin Ratio Salicylates Urine Opiates Screen NEGATIVE Urine Methadone Screen NEGATIVE Acetaminophen Ur Barbiturates Screen NEGATIVE Ur Phencyclidine Scrn NEGATIVE Ur Amphetamines Screen POSITIVE H U Methamphetamin-MDMA NEGATIVE U Benzodiazepines Scrn NEGATIVE Urine Cocaine Screen NEGATIVE U Cannabinoids Screen POSITIVE H Ur Drug Screen Comment Ethyl Alcohol < 3.0 12/23/18 12/23/18 14:12 14:12 WBC RBC Hgb Hct MCV MCH MCHC RDW Std Deviation RDW Coeff of Saeed Plt Count MPV Immature Gran % (Auto) Neut % (Auto) Lymph % (Auto) [place] % (Auto) Eos % (Auto) Baso % (Auto) Absolute Neuts (auto) Absolute Lymphs (auto) Absolute Nucleated RBC Nucleated RBC % Sodium 138 Potassium 3.7 Chloride 107 Carbon Dioxide 26.0 Anion Gap 5 BUN 22 H Creatinine 1.19 Estim Creat Clear Calc 85.23 Est GFR (MDRD) Af Amer 95 Est GFR (MDRD) Non-Af 79 BUN/Creatinine Ratio 18.5 Glucose 125 H Calcium 9.2 Total Bilirubin 0.90 AST 11 L ALT 19 Alkaline Phosphatase 75 Total Protein 8.2 Albumin 4.4 Globulin 3.8 Albumin/Globulin Ratio 1.2 Salicylates 2.4 L Urine Opiates Screen Urine Methadone Screen Acetaminophen < 2.0 L Ur Barbiturates Screen Ur Phencyclidine Scrn Ur Amphetamines Screen U Methamphetamin-MDMA U Benzodiazepines Scrn Urine Cocaine Screen U Cannabinoids Screen Ur Drug Screen Comment Ethyl Alcohol Patient presents with suicidal ideation and multiple plans. He is requesting dual psych treatment as well as rehab from his drug use. Patient has been accepted at [facility]. He was given 1 mg of p.o. Ativan on arrival here and has been alert and cooperative throughout his ED stay. Disposition: Transfer ED Disposition - Plan for ED Patient: Disposition: Psychiatric Hospital or Unit Diagnosis: Suicidal ideation, Drug abuse Referrals: Care Physician,No Primary [Primary Care Provider] -
[2018-12-23 14:23] LABS: Absolute Lymphocyte Count 1.76 X10^3/uL (0.83-4.51); Absolute Neutrophil Count 5.8 X10^3/uL (2.0-7.7); Basophil# 0.03 X10^3/uL; Basophil% 0.4 % (0-1); Eosinophil# 0.12 X10^3/uL; Eosinophils% 1.5 % (0-5); Hematocrit 47.7 % (40-54); Hemoglobin 16.8 g/dL (13.0-16.5); Lymphocyte # 1.76 X10^3/ul (4.0); Lymphocyte % 21.6 % (19-41); Mean Corp Hgb Conc 35.2 g/dL (32-36); Mean Corpuscular Hgb 31.9 pg (27.0-32.0); Mean Corpuscular Volume 90.7 fL (80-94); Mean Platelet Vol. 9.1 fl (6.2-12.0); Monocyte# 0.43 X10^3/uL; Monocyte% 5.3 % (0-10); NRBC Flagged by Analyzer 0 % (0-5); Neutrophil # 5.76 X10^3/uL (2.7-7.7); Neutrophil % 70.8 % (47-70); Platelet Count 263 K/mm3 (150-450); RBC Distribution Width CV 11.3 % (11.6-14.6); RBC Distribution Width SD 37.8 fl (35.1-43.9); Red Blood Count 5.26 M/mm3 (4.6-6.2); White Blood Count 8.1 K/mm3 (4.4-11.0)
[2018-12-23 14:38] LABS: Amphetamine Urine VISTA POSITIVE (<1000 ng/mL); Barbiturate Urine VISTA NEGATIVE (< 200 ng/mL); Benzodiazepine Urine VISTA NEGATIVE (< 200 ng/mL); Cocaine Urine VISTA NEGATIVE (< 300 ng/mL); Ecstacy Urine VISTA NEGATIVE (< 500 ng/mL); Methadone Urine VISTA NEGATIVE (< 300 ng/mL); PCP Urine VISTA NEGATIVE (< 25 ng/mL); THC Urine VISTA POSITIVE (< 50 ng/mL); Vista UDS pH Range 5
[2018-12-23 14:39] LABS: ALB/GLOB Ratio 1.2 RATIO (0.9-2.4); AST(SGOT) 11 U/L (15-37); Alanine Aminotransfer ALT/SGPT 19 U/L (16-61); Albumin, Serum 4.4 g/dL (3.2-5.0); Alkaline Phosphatase 75 U/L (45-117); Anion Gap 5 (5-15); BUN 22 mg/dL (7-18); BUN/Creat Ratio 18.5 RATIO (10-20); Calcium,Total 9.2 mg/dL (8.5-10.1); Chloride 107 mmol/L (98-107); Creatinine, Serum 1.19 mg/dL (0.70-1.30); EST Glomerular Filtration Rate 79 mL/min (>60); Est Glom Filt Rate - Afr Amer 95 mL/min (>60); Estimated Creatinine Clearance 85.23 ml/min; Globulin 3.8 g/dL (2.2-4.2); Glucose 125 mg/dL (74-106); Potassium 3.7 mmol/L (3.5-5.1); Protein, Total 8.2 g/dL (6.4-8.2); Sodium Level 138 mmol/L (136-145)
[2018-12-23] MEDS: LORazepam 1 MG Tablet PO (14:49)
[2018-12-23 14:53] LABS: Alcohol, Blood (Medical)-Serum < 3.0 mg/dL
[2018-12-23 15:29] LABS: Acetaminophen (Tylenol) Level < 2.0 ug/mL (10.0-30.0); Salicylate 2.4 mg/dL (2.8-20.0)
--- NOTE | 2018-12-23 15:45 | ED.RN ---
[facility] IS AWARE THAT PT IS READY TO BE EVALUATED
--- NOTE | 2018-12-23 17:17 | ED.RN ---
PER RAMON WITH [facility]ISIS; MADE A REFERRAL TO [facility] FOR THIS PT
== END 2018-12-23 20:40 ==
PROVIDERS: Emergency Provider Emergency Medicine
DX: R45.851 Suicidal ideations (principal); F15.10 Other stimulant abuse, uncomplicated; F10.10 Alcohol abuse, uncomplicated; Y90.9 Presence of alcohol in blood, level not specified; F17.200 Nicotine dependence, unspecified, uncomplicated
CPT/HCPCS: 80053; 80307; 80320; 80329; 85025; 99284; G0480

== ENCOUNTER 2019-02-13 13:41 | Inpatient (IN) | payer MEDICAID, SELFPAY ==
[2019-02-13] VITALS (17 sets, daily range): BP systolic 110–153; BP diastolic 55–123; PULSE 74–117; RESP 10–17; TEMP 36.4–37.4; O2SAT 97–99; BMI 21.7; BMI 20.7; BMI 20.8
--- NOTE | 2019-02-13 14:00 | EKG12_ITS ---
Test Reason : OVERDOSE Blood Pressure : / mmHG Vent. Rate : 082 BPM Atrial Rate : 082 BPM P-R Int : 136 ms QRS Dur : 102 ms QT Int : 366 ms P-R-T Axes : 063 081 037 degrees QTc Int : 427 ms Normal sinus rhythm Normal ECG Confirmed by LAURA TAI, TAYO ([id number]), design editor JUAN ARMAS ([id number]) on 02/15/2019 11:43:01 AM Referred By: BRITT Confirmed By:FILIPE SANCHEZ MD
[2019-02-13 14:58] LABS: Absolute Lymphocyte Count 1.67 X10^3/uL (0.83-4.51); Basophil# 0.02 X10^3/uL; Basophil% 0.2 % (0-1); Eosinophil# 0.05 X10^3/uL; Eosinophils% 0.6 % (0-5); Hematocrit 38.1 % (40-54); Hemoglobin 13.2 g/dL (13.0-16.5); Lymphocyte # 1.67 X10^3/ul (4.0); Mean Corp Hgb Conc 34.6 g/dL (32-36); Mean Corpuscular Hgb 30.8 pg (27.0-32.0); Mean Platelet Vol. 9.5 fl (6.2-12.0); Monocyte# 0.56 X10^3/uL; Monocyte% 6.7 % (0-10); NRBC Flagged by Analyzer 0 % (0-5); Neutrophil # 6.01 X10^3/uL (2.7-7.7); Neutrophil % 72.3 % (47-70); Platelet Count 201 K/mm3 (150-450); RBC Distribution Width CV 11.5 % (11.6-14.6); Red Blood Count 4.28 M/mm3 (4.6-6.2); White Blood Count 8.3 K/mm3 (4.4-11.0)
[2019-02-13 15:19] LABS: ALB/GLOB Ratio 1.1 RATIO (0.9-2.4); AST(SGOT) 8 U/L (15-37); Alanine Aminotransfer ALT/SGPT 15 U/L (16-61); Albumin, Serum 3.6 g/dL (3.2-5.0); Alkaline Phosphatase 63 U/L (45-117); Anion Gap 4 (5-15); BUN 12 mg/dL (7-18); BUN/Creat Ratio 13.8 RATIO (10-20); Calcium,Total 8.4 mg/dL (8.5-10.1); Chloride 109 mmol/L (98-107); Creatinine, Serum 0.87 mg/dL (0.70-1.30); EST Glomerular Filtration Rate 113 mL/min (>60); Est Glom Filt Rate - Afr Amer 136 mL/min (>60); Estimated Creatinine Clearance 124.66 ml/min; Globulin 3.3 g/dL (2.2-4.2); Glucose 92 mg/dL (74-106); Potassium 3.6 mmol/L (3.5-5.1); Protein, Total 6.9 g/dL (6.4-8.2); Sodium Level 140 mmol/L (136-145)
[2019-02-13 15:40] LABS: Acetaminophen (Tylenol) Level < 2.0 ug/mL (10.0-30.0); Salicylate 2.1 mg/dL (2.8-20.0)
[2019-02-13 16:08] LABS: Amphetamine Urine VISTA POSITIVE (<1000 ng/mL); Barbiturate Urine VISTA NEGATIVE (< 200 ng/mL); Benzodiazepine Urine VISTA NEGATIVE (< 200 ng/mL); Cocaine Urine VISTA NEGATIVE (< 300 ng/mL); Ecstacy Urine VISTA NEGATIVE (< 500 ng/mL); Methadone Urine VISTA NEGATIVE (< 300 ng/mL); PCP Urine VISTA NEGATIVE (< 25 ng/mL); THC Urine VISTA POSITIVE (< 50 ng/mL); Vista UDS pH Range 6
--- NOTE | 2019-02-13 16:42 | ED.DCSUM_ITS ---
- ER Visit Summary Date of Service: 02/13/19 Chief Complaint: Zyprexa overdose History of Present Illness: The patient is a 28 M who presents after taking an overdose of his Zyprexa medication today. Patient states he took these a little over an hour prior to arrival. Patient does not know how many tablets he took. He took the rest of the tablets that were prescribed to him. Patient had a prescription for 60 tablets of 10 mg daily as prescribed to take twice daily. These were filled on 12/31/2018. He also has a prescription for escitalopram and there are 8 tablets missing from that prescription that was also filled on 12/31/2018. If the patient was compliant with his Zyprexa he may have only taken 32 tablets. If he has only taken 8 days worth of his Zyprexa similar to his escitalopram, he may have taken 44 tablets. If he is completely noncompliant with his medications, he may have taken all 60 tablets. Physical Examination: Vital signs are stable. Patient is afebrile. Patient is in no acute distress. Patient is sleepy on examination but response to questions. Patient is in no acute distress. Oral mucosa is pink and moist. Neck is supple. Trachea is midline. There is no JVD noted. Heart was regular and slightly tachycardic. Lungs are clear and equal bilaterally. Abdomen is soft. Bowel sounds are normal. There is no tenderness. Cranial nerves II through XII are intact. There are no focal motor or sensory deficits noted. Patient does have a flat affect and a depressed mood. Patient states he does have suicidal ideations. Test Results: EKG showed a normal sinus rhythm with a rate of 82. There are no acute ST or T wave changes. There is no QTC prolongation. CBC and comprehensive metabolic profile were essentially within normal limits. Acetaminophen and salicylate levels were normal. Urine tox screen was positive for amphetamines and cannabinoids. Emergency Department Course and Treatment: Patient was monitored here in the emergency department. Case was discussed with poison control. They recommended observing for at least 8 hours because of the delayed onset of action of Zyprexa. Patient was sleeping on reevaluation. Patient will be monitored in the emergency department. Care of the patient was turned over to the oncoming physician. Disposition: [] Impression: 1. Zyprexa overdose . Depression with suicidal attempt This note was generated with [employer] software. It may contain incorrect words, spelling, and punctuation that were not noted in review of the chart prior to signing ED Disposition - Plan for ED Patient: Referrals: Care Physician,No Primary [Primary Care Provider] -
[2019-02-13] MEDS: 0.9% Normal Saline 1,000 ML 999 ML IV (19:23)
[2019-02-13] MEDS: DiphenhydrAMINE 50 MG/ML Syringe IV (19:24)
[2019-02-13 19:47] LABS: CPK Total, Creatine Kinase 108 U/L (39-308)
--- NOTE | 2019-02-13 20:13 | PCM.HP.STD ---
Problem List (1) Suicide attempt by drug overdose Status: Acute (2) Anxiety Status: Chronic (3) Tobacco use Status: Chronic (4) Alcohol abuse Status: Chronic (5) Cocaine abuse Status: Chronic (6) Methamphetamine abuse Status: Chronic (7) Heroin abuse Status: Chronic (8) Antisocial personality disorder Status: Chronic (9) Depression Status: Chronic Qualifiers: Depression Type: unspecified Qualified Code(s): F32.9 - Major depressive disorder, single episode, unspecified History of Present Illness Date of Admission: 02/13/19 Chief Complaint: Attempted OD, Depression The patient is a 28 y/o M w/ PMHx: Anxiety and Depression/antisocial personality disorder, polysubstance abuse with history of alcohol abuse, chronic cocaine abuse, methamphetamine abuse, heroin abuse, tobacco use who presents to the [facility] ED on 02/13/19 with history of overdose on his Zyprexa medications approximately 1 hour prior to arrival, unclear tablet amount however he did take the rest of the tablets that were prescribed to him with noted history of a prescription for 60 tablets 10 mg daily with twice daily regimen filled on December 31, 2018 as well as escitalopram with 8 tablets missing from that prescription also filled on the same day. Patient notes that he was attempting suicide. He has been compliant with his Zyprexa prior therefore suspected that he is only taken 32 ORIF very noncompliant up to 60 tablets. Work-up in the ED included initially T 98.7, heart rate 113, BP 125/83, respiratory rate 16, 97% on room air with most recent vital signs T 99.3, heart rate 100, BP 153/123, respiratory rate 14, 98% on room air, CBC with WBC 8.3, Hemoccult 113.2, platelet 201 without market shift, CMP with chloride 109, AST 8, ALT 15, total creatinine kinase 108, UDS with positive amphetamine and cannabinoid, alcohol negative, EKG with sinus rhythm with no acute changes, QT prolongation or concerning ischemia. Poison control was contacted regarding patient overdose on Zyprexa with recommendation for close monitoring to assure no hyperthermia onset, spasms, mental status changes with initial plan for discharge to home following crisis evaluation given improvement while in the ED however at approximately 70 p.m. patient had onset of spasms with low-grade temp therefore Benadryl was administered in addition to normal saline with creatinine kinase obtained which was noted to be normal. ED physician did discuss case with appliance technician with planned admission to the ICU and continued close monitoring prior to transition to psychiatric facility for overdose. Past Medical History Past Medical History (Chronic Problems): Chronic Problems Anxiety (Chronic) Tobacco use (Chronic) Alcohol abuse (Chronic) Cocaine abuse (Chronic) Methamphetamine abuse (Chronic) Heroin abuse (Chronic) Antisocial personality disorder (Chronic) Depression (Chronic) Allergies Penicillins Allergy (Verified 12/23/18 13:47) Rash Home Medications: Ambulatory Orders Medication Instructions Recorded Escitalopram Oxalate [Lexapro] 10 mg PO DAILY 12/23/18 Olanzapine [Zyprexa] 10 mg PO BID 12/23/18 Surgical History: no surgical history Psychiatric History: Anxiety, Depression, - - Current presentation with suicide attempt. Lives: Homeless Smoking Status: Current every day smoker Tobacco Use: Cigarettes Alcohol: Heavy Drugs: Cocaine, Heroin, Marijuana - *Family History Maternal History Items: Unknown - Patient currently unable to give reliable family history. Paternal History Items: Unknown - Patient currently unable to give reliable family history. Review of Systems Constitutional: Reports: Malaise, Weakness, Fatigue. Denies: Chills, Fever, Weight Change HEENT: Denies: Head Aches, Sinus Congestion, Sinus Drainage Cardiovascular: Denies: Chest Pain, Palpitations Respiratory: Denies: Cough, Shortness of breath at rest, Sputum production Gastrointestinal: Denies: Abdominal Pain, Nausea, Vomiting Genitourinary: Denies: Dysuria Musculoskeletal: Reports: Joint Pain, Muscle pain. Denies: Joint Tenderness Skin: Denies: Rash, Wounds Neurological: Reports: - - Spasms.. Denies: Focal weakness, Numbness, Tingling Psychiatric: Reports: Anxiety, Depression, Suicidal Ideations. Denies: Homicidal Ideations Hematologic/ Lymphatic: Denies: Easy Bruising, Easy Bleeding VTE Information - Inpt Only VTE Present on Admission: No VTE Mechan Device Prophylaxis: None VTE Pharm Prophylaxis ordered?: No Reason prophylaxis not ordered:: Treatment Not Indicated Patient Problems: Active and Suspected Problems Suicide attempt by drug overdose (Acute) Subjective: Seated upright in the ED bed, fatigued, lethargic, will awaken but falling back asleep quickly. Objective: Physical Examination: General: Awakens to stimuli, not alert, not markedly oriented but will answer some questions but very sluggish, intermittently cooperative, seated upright in the ED bed, no acute distress currently. Skin: normal color, turgor, no icterus, cyanosis. HEENT: AT/NC, EOMI, PERRLA, dry MM, no carotid bruits or JVD noted. Lungs: CTA bilaterally, moderate effort, moderate decrease BL bases, no rales, ronchi or wheezing. Heart: Mildly tachycardic with regular rhythm; no gallop, rub audible. Abdomen: soft, NTTP, ND, normal BS, no HSM. Extremities: no cyanosis, clubbing, or edema. Neurological: Awakens to stimuli, not alert, not markedly oriented but will answer some questions but very sluggish, intermittently cooperative, seated upright in the ED bed, no acute distress currently; cognitive function not baseline intact; pupils equally reactive to light and accomodation; cranial nerves goal to assess given current lethargic presentation, moving extremities, strength severely global decrease secondary to acute presentation. Psychiatric: affect appears allergic, flat, fatigued, no acute evidence of depressive or anxiety feelings errantly but did present with suicide intention and does have underlying history. - Physical Exam Vital Signs Temp Pulse Resp BP Pulse Ox 99.3 F H 100 14 153/123 H 98 02/13/19 19:12 02/13/19 19:12 02/13/19 19:12 02/13/19 19:12 02/13/19 19:12 Oxygen Delivery Method Room Air Weight: 151 lb 0.266 oz Body Mass Index (BMI) 21.7 Laboratory Tests Past 24 Hrs 02/13/19 02/13/19 02/13/19 14:25 14:25 14:25 WBC 8.3 RBC 4.28 L Hgb 13.2 Hct 38.1 L MCV 89.0 MCH 30.8 MCHC 34.6 RDW Std Deviation 37.0 RDW Coeff of Saeed 11.5 L Plt Count 201 MPV 9.5 Immature Gran % (Auto) 0.200 Neut % (Auto) 72.3 H Lymph % (Auto) 20.0 [place] % (Auto) 6.7 Eos % (Auto) 0.6 Baso % (Auto) 0.2 Absolute Neuts (auto) 6.0 Absolute Lymphs (auto) 1.67 Nucleated RBC % 0 Sodium 140 Potassium 3.6 Chloride 109 H Carbon Dioxide 27.0 Anion Gap 4 L BUN 12 Creatinine 0.87 Estim Creat Clear Calc 124.66 Est GFR (MDRD) Af Amer 136 Est GFR (MDRD) Non-Af 113 BUN/Creatinine Ratio 13.8 Glucose 92 Calcium 8.4 L Total Bilirubin 0.50 AST 8 L ALT 15 L Alkaline Phosphatase 63 Total Creatine Kinase Total Protein 6.9 Albumin 3.6 Globulin 3.3 Albumin/Globulin Ratio 1.1 Salicylates Urine Opiates Screen Urine Methadone Screen Acetaminophen Ur Barbiturates Screen Ur Phencyclidine Scrn Ur Amphetamines Screen U Methamphetamin-MDMA U Benzodiazepines Scrn Urine Cocaine Screen U Cannabinoids Screen Ur Drug Screen Comment Ethyl Alcohol 3.0 02/13/19 02/13/19 02/13/19 14:25 15:37 19:20 WBC RBC Hgb Hct MCV MCH MCHC RDW Std Deviation RDW Coeff of Saeed Plt Count MPV Immature Gran % (Auto) Neut % (Auto) Lymph % (Auto) [place] % (Auto) Eos % (Auto) Baso % (Auto) Absolute Neuts (auto) Absolute Lymphs (auto) Nucleated RBC % Sodium Potassium Chloride Carbon Dioxide Anion Gap BUN Creatinine Estim Creat Clear Calc Est GFR (MDRD) Af Amer Est GFR (MDRD) Non-Af BUN/Creatinine Ratio Glucose Calcium Total Bilirubin AST ALT Alkaline Phosphatase Total Creatine Kinase 108 Total Protein Albumin Globulin Albumin/Globulin Ratio Salicylates 2.1 L Urine Opiates Screen NEGATIVE Urine Methadone Screen NEGATIVE Acetaminophen < 2.0 L Ur Barbiturates Screen NEGATIVE Ur Phencyclidine Scrn NEGATIVE Ur Amphetamines Screen POSITIVE H U Methamphetamin-MDMA NEGATIVE U Benzodiazepines Scrn NEGATIVE Urine Cocaine Screen NEGATIVE U Cannabinoids Screen POSITIVE H Ur Drug Screen Comment Ethyl Alcohol Assessment/Plan All Active Problems Suicide attempt by drug overdose (Acute) The patient is a 28 y/o M w/ PMHx: Anxiety and Depression/antisocial personality disorder, polysubstance abuse with history of alcohol abuse, chronic cocaine abuse, methamphetamine abuse, heroin abuse, tobacco use who presents to the [facility] ED on 02/13/19 with history of overdose on his Zyprexa medications approximately 1 hour prior to arrival. 1. Anxiety and Depression/antisocial personality disorder with overdose on psychiatric medications, suicide attempt: We will admit to the ICU, continue to closely monitor, continue aggressive IV fluid hydration, closely monitor for any additional spasms, hyperthermia or further mental status changes, upon evaluation in the ED patient is very lethargic but this is recently following high-dose IV Benadryl application, fall precautions, aspiration precautions, repeat CBC, CMP in a.m., maintain on telemetry monitoring, suicide precautions, appliance technician consulted and aware of case, plan crisis evaluation once clinically improved and stable, p.o. status until improved mental status and appropriate oral intake potential. 2. Polysubstance Abuse: Patient from prior history had been in treatment program with notable usage including cocaine, methamphetamine as well as heroin. Urine drug screen as noted with amphetamine as well as cannabis, alcohol level negative. Case management consulted. Once clinically improved from current presentation may need to closely monitor for opiate withdrawal as does have notable cocaine and heroin abuse history. 3. Tobacco Abuse: Encouraged cessation, inpatient consultation per RT, NR if desired. 4. EtOH Abuse: Patient notes routine consumption heavy alcohol intake daily. Current alcohol level negative. Unclear last drink intake. Will maintain on CIWA protocol, MVI, thiamine and folic acid once oral intake safe. Case Management consulted. 5. DVT prophylaxis: Low risk, once clinically improved and appropriate, ambulation. Code Visit Inpatient E&M: 04280 Init Hosp L3
[2019-02-13] MEDS: 0.9% Normal Saline 1,000 ML 150 ML IV (22:20)
--- NOTE | 2019-02-13 22:41 | NURSING ---
Suicide precautions in effect. Pt belongings at nurse's station. Sitter at bedside. At this time pt is somnolent and not answering questions. He does respond to verbal commands with moans and groans, but is unintelligible.
[2019-02-14] VITALS (28 sets, daily range): BP systolic 100–140; BP diastolic 49–99; PULSE 63–90; RESP 10–23; TEMP 36.1–36.6; O2SAT 96–100
[2019-02-14] MEDS: 0.9% Normal Saline 1,000 ML 150 ML IV (03:56)
[2019-02-14 04:22] LABS: Absolute Neutrophil Count 4.8 X10^3/uL (2.0-7.7); Basophil# 0.03 X10^3/uL; Basophil% 0.4 % (0-1); Eosinophil# 0.05 X10^3/uL; Eosinophils% 0.6 % (0-5); Hematocrit 40.1 % (40-54); Hemoglobin 13.8 g/dL (13.0-16.5); Lymphocyte % 31.1 % (19-41); Mean Corp Hgb Conc 34.4 g/dL (32-36); Mean Corpuscular Hgb 31.3 pg (27.0-32.0); Mean Corpuscular Volume 90.9 fL (80-94); Mean Platelet Vol. 9.3 fl (6.2-12.0); Monocyte# 0.47 X10^3/uL; Monocyte% 6.1 % (0-10); NRBC Flagged by Analyzer 0 % (0-5); Neutrophil # 4.75 X10^3/uL (2.7-7.7); Neutrophil % 61.7 % (47-70); Platelet Count 201 K/mm3 (150-450); RBC Distribution Width CV 11.5 % (11.6-14.6); RBC Distribution Width SD 38.7 fl (35.1-43.9); Red Blood Count 4.41 M/mm3 (4.6-6.2); White Blood Count 7.7 K/mm3 (4.4-11.0)
[2019-02-14 04:27] LABS: ALB/GLOB Ratio 1.1 RATIO (0.9-2.4); AST(SGOT) 11 U/L (15-37); Alanine Aminotransfer ALT/SGPT 15 U/L (16-61); Albumin, Serum 3.4 g/dL (3.2-5.0); Alkaline Phosphatase 61 U/L (45-117); Anion Gap 5 (5-15); BUN 8 mg/dL (7-18); BUN/Creat Ratio 9.3 RATIO (10-20); Calcium,Total 8.4 mg/dL (8.5-10.1); Chloride 117 mmol/L (98-107); Creatinine, Serum 0.86 mg/dL (0.70-1.30); EST Glomerular Filtration Rate 114 mL/min (>60); Est Glom Filt Rate - Afr Amer 139 mL/min (>60); Estimated Creatinine Clearance 121.33 ml/min; Globulin 3.1 g/dL (2.2-4.2); Glucose 87 mg/dL (74-106); Potassium 4.1 mmol/L (3.5-5.1); Protein, Total 6.5 g/dL (6.4-8.2); Sodium Level 149 mmol/L (136-145)
--- NOTE | 2019-02-14 05:10 | EKG12_ITS ---
Test Reason : AM Blood Pressure : / mmHG Vent. Rate : 100 BPM Atrial Rate : 100 BPM P-R Int : 138 ms QRS Dur : 098 ms QT Int : 366 ms P-R-T Axes : 067 083 040 degrees QTc Int : 472 ms Normal sinus rhythm Normal ECG When compared with ECG of 13-FEB-2019 14:23, MANUAL COMPARISON REQUIRED, DATA IS UNCONFIRMED Confirmed by LAURA TAI, TAYO ([id number]), news assignment editor JAYY SCHOFIELD ([id number]) on 02/18/2019 3:57:26 PM Referred By: MARIO Confirmed By:FILIPE SANCHEZ MD
--- NOTE | 2019-02-14 05:55 | RAD_ITS ---
STUDY: X-RAY CHEST REASON FOR EXAM: Male, 28 years old. Overdose. Patient very agitated. TECHNIQUE: AP upright portable view. COMPARISON: None. FINDINGS: The lungs are clear and expanded. There is no demonstrated pleural abnormality. Normal size heart. Normal mediastinum and aj. Normal visualized pulmonary arteries. Normal visualized aortic arch and descending thoracic aorta. Normal visualized thoracic spine. Normal visualized ribs, clavicles, and shoulders. There is no demonstrated abnormality of the visualized soft tissue structures of the upper abdomen. RAD/Chest 1 View (Portable) IMPRESSION: Normal x-ray examination of the chest. Electronically Signed: Norris Regalado MD at 8:37 EDT , Service support ,
--- NOTE | 2019-02-14 06:30 | PCM.CON.CC ---
Reason for Consult Date of Consultation: 02/14/19 Reason for Consultation: Intentional overdose History of Present Illness: The patient is a 28-year-old male, with a history as outlined below, who presented to the emergency department on February 13 following an intentional overdose of Zyprexa. The patient does have a history of underlying depression, antisocial personality disorder and polysubstance abuse including alcohol, cocaine and methamphetamine. No significant medical history could be obtained from the patient due to a lack of interaction with me during questioning. On presentation to the emergency department, the patient was noted to be afebrile, tachycardic and hemodynamically stable. He was maintaining appropriate oxygen saturations on room air. Laboratory evaluation revealed no evidence of a leukocytosis. Chemistry profile was largely unrevealing. Toxicology screen was positive for amphetamines and cannabinoids. Poison control was contacted and the patient was monitored within the confines of the emergency department. Although there were initial plans to discharge the patient home following monitoring, he subsequently developed a change in his mental status. Poison control was once again contacted and Benadryl was administered. CK was noted to be normal. Therefore, the patient was admitted to the medical intensive care unit for close monitoring of his overdose state. No overnight issues were identified by the nursing staff. The patient has remained hemodynamically stable on room air. Past Medical History Past Medical History (Chronic Problems): Chronic Problems Anxiety (Chronic) Tobacco use (Chronic) Alcohol abuse (Chronic) Cocaine abuse (Chronic) Methamphetamine abuse (Chronic) Heroin abuse (Chronic) Antisocial personality disorder (Chronic) Depression (Chronic) Allergies Penicillins Allergy (Verified 12/23/18 13:47) Rash Home Medications: Ambulatory Orders Medication Instructions Recorded Escitalopram Oxalate [Lexapro] 10 mg PO DAILY 12/23/18 Olanzapine [Zyprexa] 10 mg PO BID 12/23/18 Surgical History: no surgical history Psychiatric History: Anxiety, Depression, - - Current presentation with suicide attempt. Lives: Homeless Smoking Status: Current every day smoker Tobacco Use: Cigarettes Alcohol: Heavy Drugs: Cocaine, Heroin, Marijuana - *Family History Maternal History Items: Unknown - Patient currently unable to give reliable family history. Paternal History Items: Unknown - Patient currently unable to give reliable family history. Review of Systems Unable to obtain accurate/complete ROS d/t: Due to patient somnolence Patient Problems: Active and Suspected Problems Suicide attempt by drug overdose (Acute) Objective: The patient's most recent lab work, culture data and imaging studies have all been personally reviewed. - Physical Exam General: - - Quite somnolent. Will arouse transiently to verbal stimulation and then fall quickly back to sleep. HEENT: Atraumatic, Normocephalic Oral: No Gingival or Mucosal Lesions/ Ulcerations Neck: Supple, No Nodes, Trachea Midline Lungs: No rhonchi, No wheeze, No rales, Diminished Cardiovascular: Regular rate, Regular Rhythm, Normal S1, Normal S2, No murmurs Abdomen: Bowel Sounds Present, Soft, Non Tender Extremities: No clubbing, No cyanosis, No edema Skin: No breakdown Musculoskeletal: No Tenderness to Palpation of Joints or Extremities Lymphatic: No Cervical, Supraclavicular, or Inguinal Adenopathy Neurological: - - No focal neurological deficits. Moves all extremities spontaneously. Vital Signs Temp Pulse Resp BP Pulse Ox 97.9 F 71 21 H 100/56 L 99 02/14/19 04:00 02/14/19 06:00 02/14/19 06:00 02/14/19 06:00 02/14/19 06:00 Oxygen Delivery Method Room Air Weight: 145 lb 8.081 oz Body Mass Index (BMI) 20.7 Intake and Output for Last 24 Hours 02/12/19 02/13/19 02/14/19 23:59 23:59 23:59 Intake Total 1000 / 1250 1150 / 1150 Output Total 0 / 0 Balance 1000 / 1250 1150 / 1150 Laboratory Tests Past 24 Hrs 02/13/19 02/13/19 02/13/19 14:25 14:25 14:25 WBC 8.3 RBC 4.28 L Hgb 13.2 Hct 38.1 L MCV 89.0 MCH 30.8 MCHC 34.6 RDW Std Deviation 37.0 RDW Coeff of Saeed 11.5 L Plt Count 201 MPV 9.5 Immature Gran % (Auto) 0.200 Neut % (Auto) 72.3 H Lymph % (Auto) 20.0 [place] % (Auto) 6.7 Eos % (Auto) 0.6 Baso % (Auto) 0.2 Absolute Neuts (auto) 6.0 Absolute Lymphs (auto) 1.67 Nucleated RBC % 0 Sodium 140 Potassium 3.6 Chloride 109 H Carbon Dioxide 27.0 Anion Gap 4 L BUN 12 Creatinine 0.87 Estim Creat Clear Calc 124.66 Est GFR (MDRD) Af Amer 136 Est GFR (MDRD) Non-Af 113 BUN/Creatinine Ratio 13.8 Glucose 92 Calcium 8.4 L Total Bilirubin 0.50 AST 8 L ALT 15 L Alkaline Phosphatase 63 Total Creatine Kinase Total Protein 6.9 Albumin 3.6 Globulin 3.3 Albumin/Globulin Ratio 1.1 Salicylates Urine Opiates Screen Urine Methadone Screen Acetaminophen Ur Barbiturates Screen Ur Phencyclidine Scrn Ur Amphetamines Screen U Methamphetamin-MDMA U Benzodiazepines Scrn Urine Cocaine Screen U Cannabinoids Screen Ur Drug Screen Comment Ethyl Alcohol 3.0 02/13/19 02/13/19 02/13/19 14:25 15:37 19:20 WBC RBC Hgb Hct MCV MCH MCHC RDW Std Deviation RDW Coeff of Saeed Plt Count MPV Immature Gran % (Auto) Neut % (Auto) Lymph % (Auto) [place] % (Auto) Eos % (Auto) Baso % (Auto) Absolute Neuts (auto) Absolute Lymphs (auto) Nucleated RBC % Sodium Potassium Chloride Carbon Dioxide Anion Gap BUN Creatinine Estim Creat Clear Calc Est GFR (MDRD) Af Amer Est GFR (MDRD) Non-Af BUN/Creatinine Ratio Glucose Calcium Total Bilirubin AST ALT Alkaline Phosphatase Total Creatine Kinase 108 Total Protein Albumin Globulin Albumin/Globulin Ratio Salicylates 2.1 L Urine Opiates Screen NEGATIVE Urine Methadone Screen NEGATIVE Acetaminophen < 2.0 L Ur Barbiturates Screen NEGATIVE Ur Phencyclidine Scrn NEGATIVE Ur Amphetamines Screen POSITIVE H U Methamphetamin-MDMA NEGATIVE U Benzodiazepines Scrn NEGATIVE Urine Cocaine Screen NEGATIVE U Cannabinoids Screen POSITIVE H Ur Drug Screen Comment Ethyl Alcohol 02/14/19 02/14/19 04:00 04:00 WBC 7.7 RBC 4.41 L Hgb 13.8 Hct 40.1 MCV 90.9 MCH 31.3 MCHC 34.4 RDW Std Deviation 38.7 RDW Coeff of Saeed 11.5 L Plt Count 201 MPV 9.3 Immature Gran % (Auto) 0.100 Neut % (Auto) 61.7 Lymph % (Auto) 31.1 [place] % (Auto) 6.1 Eos % (Auto) 0.6 Baso % (Auto) 0.4 Absolute Neuts (auto) 4.8 Absolute Lymphs (auto) 2.40 Nucleated RBC % 0 Sodium 149 H Potassium 4.1 Chloride 117 H Carbon Dioxide 27.0 Anion Gap 5 BUN 8 Creatinine 0.86 Estim Creat Clear Calc 121.33 Est GFR (MDRD) Af Amer 139 Est GFR (MDRD) Non-Af 114 BUN/Creatinine Ratio 9.3 L Glucose 87 Calcium 8.4 L Total Bilirubin 0.40 AST 11 L ALT 15 L Alkaline Phosphatase 61 Total Creatine Kinase Total Protein 6.5 Albumin 3.4 Globulin 3.1 Albumin/Globulin Ratio 1.1 Salicylates Urine Opiates Screen Urine Methadone Screen Acetaminophen Ur Barbiturates Screen Ur Phencyclidine Scrn Ur Amphetamines Screen U Methamphetamin-MDMA U Benzodiazepines Scrn Urine Cocaine Screen U Cannabinoids Screen Ur Drug Screen Comment Ethyl Alcohol Assessment/Plan Active and Suspected Problems Suicide attempt by drug overdose (Acute) RECOMMENDATIONS: 1. Continue current supportive measures, pending improvement in the patient's mentation. 2. Crisis evaluation once medically stabilized. 3. Monitor for signs of alcohol withdrawal. 4. Continue thiamine and folate repletion. IMPRESSIONS: 1. Intentional overdose Continue to monitor in ICU setting and provide supportive care. The patient will require crisis evaluation once medically stabilized. 2. Encephalopathy Likely secondary to polypharmacy. Poison control is aware. Plan to continue current supportive measures. Anticipate improvement with time. 3. History of polysubstance abuse/anxiety/depression Complicates care, management, recovery and prognosis. Continue to monitor for signs of alcohol withdrawal. This note was generated with [employer] dictation software. It may contain incorrect words, spelling, and punctuation that were not noted in checking the note before signing. Code Visit Inpatient E&M: 68957 Init Hosp L3
--- NOTE | 2019-02-14 08:53 | CASEMGMT ---
Addendum entered by Delmi Mirza 02/14/19 10:41: SW spoke w/Dr. Capellan, pt is not yet ready to meet w/crisis. ABUNDIO Narvaez Original Note: SW called [facility] for clarification in regard to whether or not this pt had been seen yet by crisis. Pat in crisis explained that they had been called however once it was decided pt would be admitted, pt was not seen. SW will call crisis once pt is medically cleared to be seen. ABUNDIO Narvaez
--- NOTE | 2019-02-14 10:51 | PN_ITS ---
Patient Problems: Active and Suspected Problems Suicide attempt by drug overdose (Acute) Subjective: The pt is a 28 YO male with a PMH of polysubstance abuse, antisocial personality disorder, depression ETOH abuse, tobacco dependence and a prior suicide attempt who presented to the ER stating he had taken an OD of Zyrexa and esc italopram.....he did not know how many he had taken. Vital signs at presentation to the emergency room were temperature 98.7, heart rate 113, blood pressure 125/83, respiratory rate 16 and he was 97% saturated on room air. CBC was unremarkable. LFTs were unremarkable. Total CK was 108. Urine drug screen was positive for amphetamines and cannabinoids. EtOH was negative. EKG showed normal sinus rhythm with no acute ST or T wave changes and no QT prolongation. Chest x-ray showed no infiltrates, pleural effusions or pulmonary vascular congestion. Poison control was contacted regarding Zyprexa and Escitalopram OD's and they recommended close monitoring to ensure no hyperthermia, spasms or mental status changes. He was admitted to the ICU. Afebrile since admission. Heart rate and blood pressure are within normal limits. He is 98 to 99% saturated on room air. All lab was personally reviewed. CBC is within normal limits. Sodium is increased at 149 with a chloride of 117. BUN is 8 and the creatinine is 0.86. Attempted to speak to the patient this morning however I had to shake him to arouse him and he would only stay awake for less than a minute before nodding off to sleep again. Does not appear to be in any discomfort. He was sticking his finger deeply into his nose and then licking the finger repeatedly while I was trying to talk with him. He is afebrile with stable vital signs. Pulse ox on room air is 97 to 100%. All lab was personally reviewed CBC is unremarkable. Sodium is increased at 149 today and the chloride is 117. BUN is 8 with a creatinine of 0.86. LFTs are unremarkable. Tox screen was positive for amphetamines and cannabinoids. - Physical Exam General: No apparent distress, Lethargic HEENT: Atraumatic, Normocephalic Oral: Moist Mucosa Neck: Supple, No Nodes, Trachea Midline Lungs: Clear to auscultation, No rhonchi, No wheeze, No rales, - - Poor inspiratory effort Cardiovascular: Regular rate, Regular Rhythm, Normal S1, Normal S2, No murmurs, No rub noted, No Gallop Abdomen: Bowel Sounds Present, Soft, Non-Distended, - - No guarding with palpation Extremities: No clubbing, No cyanosis, No edema, Peripheral Pulses Normal Skin: No rashes, No breakdown Neurological: - - No focal neurologic deficits, moves all extremities, very lethargic and difficult to arouse and when he does arouse he falls immediately back to sleep. Psych/Mental Status: - - unable to assess because he can not stay awake and talk with me. Vital Signs Temp Pulse Resp BP Pulse Ox 97.9 F 79 12 114/85 H 97 02/14/19 04:00 02/14/19 08:00 02/14/19 08:00 02/14/19 08:00 02/14/19 08:00 Oxygen Delivery Method Room Air Weight: 145 lb 8.081 oz Body Mass Index (BMI) 20.7 Intake and Output for Last 24 Hours 02/12/19 02/13/19 02/14/19 23:59 23:59 23:59 Intake Total 1000 / 1250 1150 / 1150 Output Total 700 / 700 Balance 1000 / 1250 450 / 450 Laboratory Tests Past 24 Hrs 02/13/19 02/13/19 02/13/19 14:25 14:25 14:25 WBC 8.3 RBC 4.28 L Hgb 13.2 Hct 38.1 L MCV 89.0 MCH 30.8 MCHC 34.6 RDW Std Deviation 37.0 RDW Coeff of Saeed 11.5 L Plt Count 201 MPV 9.5 Immature Gran % (Auto) 0.200 Neut % (Auto) 72.3 H Lymph % (Auto) 20.0 [place] % (Auto) 6.7 Eos % (Auto) 0.6 Baso % (Auto) 0.2 Absolute Neuts (auto) 6.0 Absolute Lymphs (auto) 1.67 Nucleated RBC % 0 Sodium 140 Potassium 3.6 Chloride 109 H Carbon Dioxide 27.0 Anion Gap 4 L BUN 12 Creatinine 0.87 Estim Creat Clear Calc 124.66 Est GFR (MDRD) Af Amer 136 Est GFR (MDRD) Non-Af 113 BUN/Creatinine Ratio 13.8 Glucose 92 Calcium 8.4 L Total Bilirubin 0.50 AST 8 L ALT 15 L Alkaline Phosphatase 63 Total Creatine Kinase Total Protein 6.9 Albumin 3.6 Globulin 3.3 Albumin/Globulin Ratio 1.1 Salicylates Urine Opiates Screen Urine Methadone Screen Acetaminophen Ur Barbiturates Screen Ur Phencyclidine Scrn Ur Amphetamines Screen U Methamphetamin-MDMA U Benzodiazepines Scrn Urine Cocaine Screen U Cannabinoids Screen Ur Drug Screen Comment Ethyl Alcohol 3.0 02/13/19 02/13/19 02/13/19 14:25 15:37 19:20 WBC RBC Hgb Hct MCV MCH MCHC RDW Std Deviation RDW Coeff of Saeed Plt Count MPV Immature Gran % (Auto) Neut % (Auto) Lymph % (Auto) [place] % (Auto) Eos % (Auto) Baso % (Auto) Absolute Neuts (auto) Absolute Lymphs (auto) Nucleated RBC % Sodium Potassium Chloride Carbon Dioxide Anion Gap BUN Creatinine Estim Creat Clear Calc Est GFR (MDRD) Af Amer Est GFR (MDRD) Non-Af BUN/Creatinine Ratio Glucose Calcium Total Bilirubin AST ALT Alkaline Phosphatase Total Creatine Kinase 108 Total Protein Albumin Globulin Albumin/Globulin Ratio Salicylates 2.1 L Urine Opiates Screen NEGATIVE Urine Methadone Screen NEGATIVE Acetaminophen < 2.0 L Ur Barbiturates Screen NEGATIVE Ur Phencyclidine Scrn NEGATIVE Ur Amphetamines Screen POSITIVE H U Methamphetamin-MDMA NEGATIVE U Benzodiazepines Scrn NEGATIVE Urine Cocaine Screen NEGATIVE U Cannabinoids Screen POSITIVE H Ur Drug Screen Comment Ethyl Alcohol 02/14/19 02/14/19 04:00 04:00 WBC 7.7 RBC 4.41 L Hgb 13.8 Hct 40.1 MCV 90.9 MCH 31.3 MCHC 34.4 RDW Std Deviation 38.7 RDW Coeff of Saeed 11.5 L Plt Count 201 MPV 9.3 Immature Gran % (Auto) 0.100 Neut % (Auto) 61.7 Lymph % (Auto) 31.1 [place] % (Auto) 6.1 Eos % (Auto) 0.6 Baso % (Auto) 0.4 Absolute Neuts (auto) 4.8 Absolute Lymphs (auto) 2.40 Nucleated RBC % 0 Sodium 149 H Potassium 4.1 Chloride 117 H Carbon Dioxide 27.0 Anion Gap 5 BUN 8 Creatinine 0.86 Estim Creat Clear Calc 121.33 Est GFR (MDRD) Af Amer 139 Est GFR (MDRD) Non-Af 114 BUN/Creatinine Ratio 9.3 L Glucose 87 Calcium 8.4 L Total Bilirubin 0.40 AST 11 L ALT 15 L Alkaline Phosphatase 61 Total Creatine Kinase Total Protein 6.5 Albumin 3.4 Globulin 3.1 Albumin/Globulin Ratio 1.1 Salicylates Urine Opiates Screen Urine Methadone Screen Acetaminophen Ur Barbiturates Screen Ur Phencyclidine Scrn Ur Amphetamines Screen U Methamphetamin-MDMA U Benzodiazepines Scrn Urine Cocaine Screen U Cannabinoids Screen Ur Drug Screen Comment Ethyl Alcohol Medical Necessity - Tobacco Use Smoking Status: Current every day smoker Tobacco Use: Cigarettes Assessment/Plan All Active Problems Suicide attempt by drug overdose (Acute) Impressions 1. Reported OD of Zyprexa and Escitalopram in a suicide attempt - [place] slip if he attempts to leave but, no until then. Have crisis intervention evaluate when he is able to stay awake and talk with them. 2. poly substance abuse, ETOH abuse - maintain on CIWA protocol. Continue multivitamin, thiamine and folic acid daily. 3. antisocial personality disorder and depression - hold psych meds. 4. Tobacco dependence - nicotine patch on order. Recheck the lab in the AM and a TSH an ammonia level in preparation for DC to an in psychiatric facility Code Visit Inpatient E&M: 53010 Subs Hosp L3
--- NOTE | 2019-02-14 12:25 | NURSING ---
poison control updated on patient condition
[2019-02-15] VITALS (21 sets, daily range): BP systolic 109–159; BP diastolic 66–96; PULSE 59–107; RESP 13–26; TEMP 36.3–36.4; O2SAT 97–100
[2019-02-15 04:20] LABS: Anion Gap 7 (5-15); BUN 9 mg/dL (7-18); BUN/Creat Ratio 10.3 RATIO (10-20); CPK Total, Creatine Kinase 61 U/L (39-308); Calcium,Total 8.7 mg/dL (8.5-10.1); Chloride 114 mmol/L (98-107); Creatinine, Serum 0.87 mg/dL (0.70-1.30); EST Glomerular Filtration Rate 113 mL/min (>60); Est Glom Filt Rate - Afr Amer 136 mL/min (>60); Estimated Creatinine Clearance 120.11 ml/min; Glucose 84 mg/dL (74-106); Potassium 3.8 mmol/L (3.5-5.1); Sodium Level 148 mmol/L (136-145); Thyroid Stim Hormone (TSH) 0.92 uIU/mL (0.358-3.74)
--- NOTE | 2019-02-15 07:26 | PCM.PN.INT ---
Subjective: The patient was seen and examined at the bedside this morning. Events from the last 24 hours have been reviewed. The patient is currently afebrile, hemodynamically stable and maintaining appropriate oxygen saturations on room air. Nursing staff reports very limited interaction from the patient, as he continues to sleep a great deal of the time. The patient interacted very little with me this morning. Objective: The patient's most recent lab work, culture data and imaging studies have all been personally reviewed. General: - - Awakens from sleep but does not readily answer questions. HEENT: Atraumatic, PERRLA, Normocephalic Oral: No Gingival or Mucosal Lesions/ Ulcerations Neck: Supple, No Nodes, Trachea Midline Lungs: No rhonchi, No wheeze, No rales, Diminished Cardiovascular: Regular rate, Regular Rhythm, Normal S1, Normal S2, No murmurs Abdomen: Bowel Sounds Present, Soft, Non Tender Extremities: No clubbing, No cyanosis, No edema Skin: No breakdown Musculoskeletal: No Tenderness to Palpation of Joints or Extremities Lymphatic: No Cervical, Supraclavicular, or Inguinal Adenopathy Neurological: Cranial nerves II-XII grossly intact, Neuro grossly intact Psych/Mental Status: Flat Affect Vital Signs Temp Pulse Resp BP Pulse Ox 97.3 F L 79 14 129/80 H 98 02/15/19 00:00 02/15/19 06:00 02/15/19 06:00 02/15/19 06:00 02/15/19 06:00 Oxygen Delivery Method Room Air Weight: 142 lb 6.698 oz Body Mass Index (BMI) 20.7 Intake and Output for Last 24 Hours 02/13/19 02/14/19 02/15/19 23:59 23:59 23:59 Intake Total 1000 / 1250 2140 / 2140 150 / 150 Output Total 700 / 700 0 / 0 Balance 1000 / 1250 1440 / 1440 150 / 150 Labs (Last 48 Hours) 02/13/19 02/13/19 02/13/19 14:25 14:25 14:25 WBC 8.3 RBC 4.28 L Hgb 13.2 Hct 38.1 L MCV 89.0 MCH 30.8 MCHC 34.6 RDW Std Deviation 37.0 RDW Coeff of Saeed 11.5 L Plt Count 201 MPV 9.5 Immature Gran % (Auto) 0.200 Neut % (Auto) 72.3 H Lymph % (Auto) 20.0 [place] % (Auto) 6.7 Eos % (Auto) 0.6 Baso % (Auto) 0.2 Absolute Neuts (auto) 6.0 Absolute Lymphs (auto) 1.67 Nucleated RBC % 0 Sodium 140 Potassium 3.6 Chloride 109 H Carbon Dioxide 27.0 Anion Gap 4 L BUN 12 Creatinine 0.87 Estim Creat Clear Calc 124.66 Est GFR (MDRD) Af Amer 136 Est GFR (MDRD) Non-Af 113 BUN/Creatinine Ratio 13.8 Glucose 92 Calcium 8.4 L Total Bilirubin 0.50 AST 8 L ALT 15 L Alkaline Phosphatase 63 Ammonia Total Creatine Kinase Total Protein 6.9 Albumin 3.6 Globulin 3.3 Albumin/Globulin Ratio 1.1 TSH Salicylates Urine Opiates Screen Urine Methadone Screen Acetaminophen Ur Barbiturates Screen Ur Phencyclidine Scrn Ur Amphetamines Screen U Methamphetamin-MDMA U Benzodiazepines Scrn Urine Cocaine Screen U Cannabinoids Screen Ur Drug Screen Comment Ethyl Alcohol 3.0 02/13/19 02/13/19 02/13/19 14:25 15:37 19:20 WBC RBC Hgb Hct MCV MCH MCHC RDW Std Deviation RDW Coeff of Saeed Plt Count MPV Immature Gran % (Auto) Neut % (Auto) Lymph % (Auto) [place] % (Auto) Eos % (Auto) Baso % (Auto) Absolute Neuts (auto) Absolute Lymphs (auto) Nucleated RBC % Sodium Potassium Chloride Carbon Dioxide Anion Gap BUN Creatinine Estim Creat Clear Calc Est GFR (MDRD) Af Amer Est GFR (MDRD) Non-Af BUN/Creatinine Ratio Glucose Calcium Total Bilirubin AST ALT Alkaline Phosphatase Ammonia Total Creatine Kinase 108 Total Protein Albumin Globulin Albumin/Globulin Ratio TSH Salicylates 2.1 L Urine Opiates Screen NEGATIVE Urine Methadone Screen NEGATIVE Acetaminophen < 2.0 L Ur Barbiturates Screen NEGATIVE Ur Phencyclidine Scrn NEGATIVE Ur Amphetamines Screen POSITIVE H U Methamphetamin-MDMA NEGATIVE U Benzodiazepines Scrn NEGATIVE Urine Cocaine Screen NEGATIVE U Cannabinoids Screen POSITIVE H Ur Drug Screen Comment Ethyl Alcohol 02/14/19 02/14/19 02/15/19 04:00 04:00 03:30 WBC 7.7 RBC 4.41 L Hgb 13.8 Hct 40.1 MCV 90.9 MCH 31.3 MCHC 34.4 RDW Std Deviation 38.7 RDW Coeff of Saeed 11.5 L Plt Count 201 MPV 9.3 Immature Gran % (Auto) 0.100 Neut % (Auto) 61.7 Lymph % (Auto) 31.1 [place] % (Auto) 6.1 Eos % (Auto) 0.6 Baso % (Auto) 0.4 Absolute Neuts (auto) 4.8 Absolute Lymphs (auto) 2.40 Nucleated RBC % 0 Sodium 149 H 148 H Potassium 4.1 3.8 Chloride 117 H 114 H Carbon Dioxide 27.0 27.0 Anion Gap 5 7 BUN 8 9 Creatinine 0.86 0.87 Estim Creat Clear Calc 121.33 120.11 Est GFR (MDRD) Af Amer 139 136 Est GFR (MDRD) Non-Af 114 113 BUN/Creatinine Ratio 9.3 L 10.3 Glucose 87 84 Calcium 8.4 L 8.7 Total Bilirubin 0.40 AST 11 L ALT 15 L Alkaline Phosphatase 61 Ammonia Total Creatine Kinase 61 Total Protein 6.5 Albumin 3.4 Globulin 3.1 Albumin/Globulin Ratio 1.1 TSH 0.92 Salicylates Urine Opiates Screen Urine Methadone Screen Acetaminophen Ur Barbiturates Screen Ur Phencyclidine Scrn Ur Amphetamines Screen U Methamphetamin-MDMA U Benzodiazepines Scrn Urine Cocaine Screen U Cannabinoids Screen Ur Drug Screen Comment Ethyl Alcohol 02/15/19 03:30 WBC RBC Hgb Hct MCV MCH MCHC RDW Std Deviation RDW Coeff of Saeed Plt Count MPV Immature Gran % (Auto) Neut % (Auto) Lymph % (Auto) [place] % (Auto) Eos % (Auto) Baso % (Auto) Absolute Neuts (auto) Absolute Lymphs (auto) Nucleated RBC % Sodium Potassium Chloride Carbon Dioxide Anion Gap BUN Creatinine Estim Creat Clear Calc Est GFR (MDRD) Af Amer Est GFR (MDRD) Non-Af BUN/Creatinine Ratio Glucose Calcium Total Bilirubin AST ALT Alkaline Phosphatase Ammonia 24.0 Total Creatine Kinase Total Protein Albumin Globulin Albumin/Globulin Ratio TSH Salicylates Urine Opiates Screen Urine Methadone Screen Acetaminophen Ur Barbiturates Screen Ur Phencyclidine Scrn Ur Amphetamines Screen U Methamphetamin-MDMA U Benzodiazepines Scrn Urine Cocaine Screen U Cannabinoids Screen Ur Drug Screen Comment Ethyl Alcohol Clinical Impression(s) from Imaging Studies Chest X-Ray 02/14/19 05:55 IMPRESSION: Normal x-ray examination of the chest. Electronically Signed: Norris Regalado MD at 8:37 EDT , Service support , Medical Necessity - Tobacco Use Smoking Status: Current every day smoker Tobacco Use: Cigarettes Assessment/Plan All Active Problems Suicide attempt by drug overdose (Acute) RECOMMENDATIONS: 1. Continue current supportive measures. 2. Crisis evaluation today. 3. Monitor for signs of alcohol withdrawal. 4. Continue thiamine and folate repletion. 5. Will sign off from a critical care perspective. IMPRESSIONS: 1. Intentional overdose Continue to monitor in ICU setting and provide supportive care. The patient is medically clear for crisis evaluation. 2. Encephalopathy Improved. Likely secondary to polypharmacy. Poison control is aware. Plan to continue current supportive measures. Anticipate improvement with time. 3. History of polysubstance abuse/anxiety/depression Complicates care, management, recovery and prognosis. Continue to monitor for signs of alcohol withdrawal. This note was generated with [employer] dictation software. It may contain incorrect words, spelling, and punctuation that were not noted in checking the note before signing. Code Visit Inpatient E&M: 29415 Subs Hosp L2
--- NOTE | 2019-02-15 08:33 | PN_ITS ---
Patient Problems: Active and Suspected Problems Suicide attempt by drug overdose (Acute) Subjective: All events the past 24 hours of been reviewed. Afebrile since admission He is maintaining appropriate oxygen saturation on room air. Blood pressure and heart rate are within normal limits. All lab was personally reviewed. Sodium today is 148, down from 149 yesterday. IV fluids were discontinued in the afternoon on 02/14/2019. BUN is 9 and the creatinine is 0.87. Ammonia is normal at 24, CK is normal at 61 and the TSH is also within normal limits. He continues to sleep most of the time and does not interact with hospital personnel. More awake today. He did answer some questions for me. He is homeless. He still feels suicidal. He does as much Meth as he can get his hands on. He has been to rehab in the past and stated that did not help him. He has been to a psych hospital in the past for suicide attempt and tells me that this did not help. Would not answer any other questions....closes his eyes and shuts down. Objective: PHYSICAL EXAM: GENERAL: alert, NAD, minimally interactive with myself and other staff. Ate 100% of his breakfast today ORAL: moist mucosa, no mucosal lesions NECK: No JVD, supple, trachea midline LUNGS: CTA, symmetric chest expansion HEART: RRR, Normal S1 and S2, no rub, no gallop ABDOMEN: soft, NT, ND, BS present, no guarding with palpation EXTREMITIES: no edema, no cyanosis, no calf tenderness SKIN: No rashes, no breakdown NEUROLOGIC: no focal neurologic deficits PSYCH: distant, depressed, flat affect, mumbles when he talks with you and does not make eye contact - Physical Exam Vital Signs Temp Pulse Resp BP Pulse Ox 97.3 F L 60 21 H 133/84 H 98 02/15/19 00:00 02/15/19 07:36 02/15/19 07:36 02/15/19 07:36 02/15/19 07:36 Oxygen Delivery Method Room Air Weight: 142 lb 6.698 oz Body Mass Index (BMI) 20.7 Intake and Output for Last 24 Hours 02/13/19 02/14/19 02/15/19 23:59 23:59 23:59 Intake Total 1000 / 1250 2140 / 2140 150 / 150 Output Total 700 / 700 0 / 0 Balance 1000 / 1250 1440 / 1440 150 / 150 Laboratory Tests Past 24 Hrs 02/15/19 02/15/19 03:30 03:30 Sodium 148 H Potassium 3.8 Chloride 114 H Carbon Dioxide 27.0 Anion Gap 7 BUN 9 Creatinine 0.87 Estim Creat Clear Calc 120.11 Est GFR (MDRD) Af Amer 136 Est GFR (MDRD) Non-Af 113 BUN/Creatinine Ratio 10.3 Glucose 84 Calcium 8.7 Ammonia 24.0 Total Creatine Kinase 61 TSH 0.92 Medical Necessity - Tobacco Use Smoking Status: Current every day smoker Tobacco Use: Cigarettes Assessment/Plan All Active Problems Suicide attempt by drug overdose (Acute) Impressions 1. Reported OD of Zyprexa and Escitalopram in a suicide attempt - [place] slip if he attempts to leave but, not until then. Consult crisis today. Stable for DC to a psych facility today. 2. poly substance abuse, ETOH abuse - maintain on CIWA protocol. Continue multivitamin, thiamine and folic acid daily. 3. antisocial personality disorder and depression - hold psych meds that he overdosed on 4. Tobacco dependence - nicotine patch on order. Stable for discharge Await crisis to interview him. Code Visit Inpatient E&M: 35298 Subs Hosp L2
[2019-02-15] MEDS: Multivitamins,Ther W-Minerals Tablet 1 TABLET PO (09:05)
[2019-02-15] MEDS: Thiamine Hydrochloride 100 MG Tablet PO (09:05)
[2019-02-15] MEDS: Folic Acid 1 MG Tablet PO (09:05)
--- NOTE | 2019-02-15 09:54 | CASEMGMT ---
ANTWAN spoke w/Dr. Capellan, pt is ready to see crisis today. SW called [facility], spoke w/Telma in the crisis unit. She states someone will be here within the hour. Order placed and packet printed for supervisor machine workers. ABUNDIO Narvaez
--- NOTE | 2019-02-15 15:20 | PCM.DC.SUM ---
Discharge Date and Diagnosis - Problem List Patient Problems: Active and Suspected Problems Suicide attempt by drug overdose (Acute) Date of Admission: 02/13/19 Date of Discharge: 02/15/19 - Primary Discharge Diagnosis Active and Suspected Problems Suicide attempt by drug overdose (Acute) with escitalopram and Zyrexa - Secondary Discharge Diagnosis Chronic Problems Anxiety (Chronic) Tobacco use (Chronic) Alcohol abuse (Chronic) Cocaine abuse (Chronic) Methamphetamine abuse (Chronic) Heroin abuse (Chronic) Antisocial personality disorder (Chronic) Depression (Chronic) Hospital Course and Treatment Imaging Results: Clinical Impression(s) from Imaging Studies Chest X-Ray 02/14/19 05:55 IMPRESSION: Normal x-ray examination of the chest. Electronically Signed: Norris Regalado MD at 8:37 EDT , Service support , Laboratory Results - last 24 hr 02/15/19 02/15/19 03:30 03:30 Sodium 148 H Potassium 3.8 Chloride 114 H Carbon Dioxide 27.0 Anion Gap 7 BUN 9 Creatinine 0.87 Estim Creat Clear Calc 120.11 Est GFR (MDRD) Af Amer 136 Est GFR (MDRD) Non-Af 113 BUN/Creatinine Ratio 10.3 Glucose 84 Calcium 8.7 Ammonia 24.0 Total Creatine Kinase 61 TSH 0.92 Consultations 02/15/19 09:50 Consult: Mental Health/Crisis Routine Reason for consult?: Overdose, attempted suicide Date Notified:: 02/15/19 Time notified:: 09:25 Operations: None Summary of Care Provided: The pt is a 28 YO male with a PMH of polysubstance abuse, antisocial personality disorder, depression ETOH abuse, tobacco dependence and a prior suicide attempt who presented to the ER stating he had taken an OD of Zyrexa and escitalopram.....he did not know how many he had taken. Vital signs at presentation to the emergency room were temperature 98.7, heart rate 113, blood pressure 125/83, respiratory rate 16 and he was 97% saturated on room air. CBC was unremarkable. LFTs were unremarkable. Total CK was 108. Urine drug screen was positive for amphetamines and cannabinoids. EtOH was negative. EKG showed normal sinus rhythm with no acute ST or T wave changes and no QT prolongation. Chest x-ray showed no infiltrates, pleural effusions or pulmonary vascular congestion. Poison control was contacted regarding Zyprexa and Escitalopram OD's and they recommended close monitoring to ensure no hyperthermia, spasms or mental status changes. He was admitted to the ICU. The first day in the ICU he was very lethargic and was arousable with shaking his arm but he would fall back to sleep almost immediately. His speech was slurred and unintelligible. VSS were stable and he did wake up and eat some supper. On 02/15/2019 he was afebrile and maintaining appropriate oxygen saturation on room air. Blood pressure and heart rate were stable and within normal limits. Sodium was mildly increased at 148 secondary to hydration with normal saline at admission. Patient ate 100% of his breakfast. BUN was 9 and the creatinine was 0.87. TSH was within normal limits. Ammonia and CK were also within normal limits. He was more awake and would answer some of my questions. He is homeless and he admitted to still feeling suicidal. When I asked him how often he does math he told me as often as he can get it and is much as possible. He has had a prior suicide attempt at the past. When he does not want to talk he closes his eyes and quits talking. He does not make eye contact when he does speak. He was stable medically for DC and the crisis intervention worker was consulted. [place] slip was signed and he will be going to a psych facility in [place], arranged by the dry drug worker. He has not had any aggressive behavior in the hospital but has been minimally interactive. PHYSICAL EXAM: GENERAL: alert, NAD, minimally interactive with myself and other staff. Ate 100% of his breakfast today ORAL: moist mucosa, no mucosal lesions NECK: No JVD, supple, trachea midline LUNGS: CTA, symmetric chest expansion HEART: RRR, Normal S1 and S2, no rub, no gallop ABDOMEN: soft, NT, ND, BS present, no guarding with palpation EXTREMITIES: no edema, no cyanosis, no calf tenderness SKIN: No rashes, no breakdown NEUROLOGIC: no focal neurologic deficits PSYCH: distant, depressed, flat affect, mumbles when he talks with you and does not make eye contact This note was generated with [employer] software. It may contain incorrect words, spelling, and punctuation that were not noted in checking the note before signing. Patient Problems: Active and Suspected Problems Suicide attempt by drug overdose (Acute) - Physical Exam Vital Signs Temp Pulse Resp BP Pulse Ox 97.5 F L 75 21 H 138/94 H 98 02/15/19 12:00 02/15/19 12:00 02/15/19 12:00 02/15/19 12:00 02/15/19 12:00 Oxygen Delivery Method Room Air Weight: 142 lb 6.698 oz Body Mass Index (BMI) 20.7 Intake and Output for Last 24 Hours 02/13/19 02/14/19 02/15/19 23:59 23:59 23:59 Intake Total 1000 / 1250 2140 / 2140 550 / 550 Output Total 700 / 700 0 / 0 Balance 1000 / 1250 1440 / 1440 550 / 550 Laboratory Tests Past 24 Hrs 02/15/19 02/15/19 03:30 03:30 Sodium 148 H Potassium 3.8 Chloride 114 H Carbon Dioxide 27.0 Anion Gap 7 BUN 9 Creatinine 0.87 Estim Creat Clear Calc 120.11 Est GFR (MDRD) Af Amer 136 Est GFR (MDRD) Non-Af 113 BUN/Creatinine Ratio 10.3 Glucose 84 Calcium 8.7 Ammonia 24.0 Total Creatine Kinase 61 TSH 0.92 Home Medications: Medications to take at Discharge Escitalopram Oxalate [Lexapro] 10 mg PO DAILY 12/23/18 Olanzapine [Zyprexa] 10 mg PO BID 12/23/18 Primary Care Physician: Care Physician,No Primary [Primary Care Provider] - Disposition: Psych Hospital or Unit Minutes spent on discharge:: 35 Patient Condition:: Guarded Medical Necessity - Tobacco Use Smoking Status: Current every day smoker Tobacco Use: Cigarettes, - - Cannabis Meaningful Use Info Meaningful Use Diagnoses (Choose all that apply): None applicable Code Visit Inpatient E&M: 52294 Disch Hosp
== END 2019-02-15 18:59 | DRG 817 ==
LOC: ED 14:43 → ICU 21:51
PROVIDERS: Emergency Medicine; Admitting Provider Family Medicine; Emergency Provider Emergency Medicine; Visit Provider Internal Medicine
DX: T43.592A Poisoning by other antipsychotics and neuroleptics, intentional self-harm, initial encounter (principal); T43.222A Poisoning by selective serotonin reuptake inhibitors, intentional self-harm, initial encounter; F41.9 Anxiety disorder, unspecified; F10.10 Alcohol abuse, uncomplicated; F14.10 Cocaine abuse, uncomplicated; F15.10 Other stimulant abuse, uncomplicated; F11.10 Opioid abuse, uncomplicated; F60.2 Antisocial personality disorder; F32.9 Major depressive disorder, single episode, unspecified; Z79.899 Other long term (current) drug therapy; Z59.0 Homelessness; F17.210 Nicotine dependence, cigarettes, uncomplicated; G93.40 Encephalopathy, unspecified
CPT/HCPCS: 71045; 80048; 80053; 80307; 80320; 80329; 82140; 82550; 84443; 85025; 93005; 99285; J7030; A4216; G0480

== ENCOUNTER 2019-04-28 15:45 | Emergency (ER) | payer MEDICAID, SELFPAY ==
[2019-02-13 21:59] VITALS: BMI 20.7
[2019-04-28] VITALS (8 sets, daily range): BP systolic 124–144; BP diastolic 93–106; PULSE 79–103; RESP 16–24; TEMP 36.8; O2SAT 96–100; BMI 20.5
--- NOTE | 2019-04-28 16:03 | ED.RN ---
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
[2019-04-28 16:24] LABS: Mucous, Urine 0 SEEN /hpf (<or=2+); Red Blood Cells-Urine 0 SEEN /hpf (0-5)
[2019-04-28 16:25] LABS: Absolute Lymphocyte Count 2.65 X10^3/uL (0.83-4.51); Absolute Neutrophil Count 8.7 X10^3/uL (2.0-7.7); Basophil# 0.04 X10^3/uL; Basophil% 0.3 % (0-1); Eosinophil# 0.12 X10^3/uL; Hematocrit 50.8 % (40-54); Hemoglobin 17.5 g/dL (13.0-16.5); Lymphocyte # 2.65 X10^3/ul (4.0); Lymphocyte % 21.8 % (19-41); Mean Corp Hgb Conc 34.4 g/dL (32-36); Mean Corpuscular Hgb 30.6 pg (27.0-32.0); Mean Platelet Vol. 8.6 fl (6.2-12.0); Monocyte# 0.64 X10^3/uL; Monocyte% 5.3 % (0-10); NRBC Flagged by Analyzer 0 % (0-5); Neutrophil # 8.68 X10^3/uL (2.7-7.7); Neutrophil % 71.3 % (47-70); Platelet Count 379 K/mm3 (150-450); RBC Distribution Width CV 11.9 % (11.6-14.6); RBC Distribution Width SD 38.7 fl (35.1-43.9); Red Blood Count 5.71 M/mm3 (4.6-6.2); White Blood Count 12.2 K/mm3 (4.4-11.0)
[2019-04-28 16:29] LABS: Color, Urine Yellow (Yellow); Glucose, Dipstick Normal (Normal); Ketone-Dipstick Negative (Negative); Leukocyte Esterase-Dipstick 100 /ul (Negative); Nitrite-Dipstick Negative (Negative); Occult Blood-Urine Negative /ul (Negative); Protein-Dipstick 100 mg/dl (Negative); Urine Bilirubin Dipstick Negative (Negative); Urine Clarity Clear (Clear); Urine Urobilinogen Normal (Normal)
--- NOTE | 2019-04-28 16:31 | RAD_ITS ---
STUDY: X-RAY CHEST REASON FOR EXAM: Male, 28 years old. Abdominal pain. Nausea and vomiting. TECHNIQUE: Single frontal view of the chest. COMPARISON: None. FINDINGS: The lungs are clear and expanded. There is no demonstrated pleural abnormality. Normal size heart. Normal mediastinum and aj. Normal visualized pulmonary arteries. Normal visualized aortic arch and descending thoracic aorta. Normal visualized thoracic spine. Normal visualized ribs, clavicles, and shoulders. There is no demonstrated abnormality of the visualized soft tissue structures of the upper abdomen. RAD/Chest 1 View (Portable) IMPRESSION: Normal x-ray examination of the chest. Electronically Signed: Luis Alberto Coyle MD at 17:05 EST , Service support ,
--- NOTE | 2019-04-28 16:32 | RAD_ITS ---
STUDY: X-RAY - ABDOMEN/PELVIS REASON FOR EXAM: Male, 28 years old. Abdominal pain. Nausea and vomiting. TECHNIQUE: Single AP view of the abdomen / pelvis. COMPARISON: None. FINDINGS: Normal visualized lung bases. There is an unremarkable bowel gas pattern. There is no demonstrated free abdominal air. The visualized liver, spleen and kidneys are grossly normal in size and morphology. Normal soft tissue structures. Normal visualized osseous structures. RAD/Abdomen Single View IMPRESSION: Normal x-ray examination of the abdomen and pelvis. Electronically Signed: Luis Alberto Coyle MD at 17:05 EST , Service support ,
[2019-04-28 16:38] LABS: Bacteria RARE /hpf (None Seen); Fine Granular Cast- Urine 0-5 SEEN /lpf (0-5); Hyaline Cast 0-5 SEEN /lpf (0-5); Squamous Epithelial Cells - UA 0-5 SEEN /hpf (0-5); White Blood Cells 0-5 SEEN /hpf (0-5)
[2019-04-28 16:43] LABS: Amphetamine Urine VISTA POSITIVE (<1000 ng/mL); Barbiturate Urine VISTA NEGATIVE (< 200 ng/mL); Benzodiazepine Urine VISTA NEGATIVE (< 200 ng/mL); Cocaine Urine VISTA NEGATIVE (< 300 ng/mL); Ecstacy Urine VISTA NEGATIVE (< 500 ng/mL); Methadone Urine VISTA NEGATIVE (< 300 ng/mL); PCP Urine VISTA NEGATIVE (< 25 ng/mL); THC Urine VISTA POSITIVE (< 50 ng/mL); Vista UDS pH Range 5
--- NOTE | 2019-04-28 16:44 | ED.VIS.PSYCH ---
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 Patient took 10 325 mg iron tablets. He took these up less than 1 hour prior to arrival. He states that this was an attempted suicide. He has a history of similar symptoms and was admitted here just over 2 months ago and then taken to a psychiatric facility after admission. Patient is not cooperative and does not want to answer questions and because of that the history is somewhat limited. He does state the last time he used methamphetamines was last evening. Prior similar symptoms: Yes Recent Illness/Hospitalization: Yes <Khalif Trivedi - Last Filed: 04/28/19 17:36> <Richard Miller - Last Filed: 04/29/19 01:30> Chief Complaint: Overdose Past Medical History Prior records reviewed: Yes Past Medical History: - - Drug abuse, alcohol abuse, antisocial personality disorder, depression Surgical History: no surgical history Lives: Homeless Smoking Status: Current every day smoker Alcohol: Heavy Drugs: Cocaine, Heroin, Marijuana, - - Methamphetamine - Family History Maternal Family History: Reports: Unknown - Patient currently unable to give reliable family history. Paternal Family History: Reports: Unknown - Patient currently unable to give reliable family history. <Khalif Trivedi - Last Filed: 04/28/19 17:36> <Richard Miller - Last Filed: 04/29/19 01:30> - Allergies and Home Meds Allergies/Adverse Reactions: Allergies Penicillins Allergy (Verified 12/23/18 13:47) Rash cephalexin [From Keflex] Adverse Reaction (Verified 04/28/19 15:47) Rash Primary Care Physician: Care Physician,No Primary [Primary Care Provider] - Review of Systems All systems negative except as indicated General: Denies: Chills, Fever, Malaise, Subjective, Sweats, Weight loss, - Eyes: Denies: Visual changes - left, Visual changes - right, Visual changes - bilaterally, Blurred vision - left, Blurred vision - right, Blurred Vision - bilaterally, Diplopia, -, - ENT: Denies: Bilateral ear pain, Left ear pain, Right ear pain, Rhinorrhea, Sore throat, -, - Cardiovascular: Denies: Chest pain, Palpitations, Heart racing, -, - Respiratory: Denies: Dyspnea, Cough, Sputum, Dyspnea on exertion, Orthopnea, Paroxysmal nocturnal dyspnea, -, - Gastrointestinal: Denies: Abdominal pain, Nausea, Vomiting, Diarrhea, Constipation, Melena, Hematochezia, -, - Genitourinary: Denies: Dysuria, Hematuria, Frequency, -, - Musculoskeletal: Denies: Myalgias, Arthralgias, Neck pain, Back pain, Swelling, Extremity Pain, -, - Skin: Denies: Rash, Abscess, Abrasions, Wounds, -, - Neurological: Denies: Headache, Weakness, Parasthesia, Numbness, -, - Psych: Reports: Depression, Suicidal thoughts, Suicidal ideations. Denies: Anxiety <Khalif Trivedi - Last Filed: 04/28/19 17:36> Physical Exam Vital Signs/Narrative: Vital Signs Temp Pulse Resp BP Pulse Ox 04/28/19 15:47 98.2 F 90 18 144/106 H 97 Inital Vital Signs reviewed: Yes General: Well nourished, Well developed Head: Normocephalic, Atraumatic Eyes: Perrl, EOMI ENT: Moist mucous membranes Neck: Supple, Nontender Cardiovascular: Regular rate, Regular rhythm, No murmurs Respiratory: No distress, CTA bilaterally, Chest nontender Abdomen: Soft, Nontender, Nondistended, Normal bowel sounds, No masses Back: Nontender, Normal Inspection Extremities: Nontender, No Edema Skin: Normal color, No rash, No Trauma Neurological: Alert, Oriented x3 Psych: Normal Speech Pattern, Logical sequential goal directed thoughts, Irritable, Suicidal thoughts, Poor Insight, Poor Judgement <Khalif Trivedi - Last Filed: 04/28/19 17:36> Vital Signs/Narrative: Vital Signs Pulse Resp BP Pulse Ox 04/28/19 21:00 88 16 140/102 H 100 04/28/19 20:06 90 18 142/101 H 96 04/28/19 19:57 81 16 136/103 H 96 04/28/19 18:32 79 24 H 124/104 H 96 <Richard Miller - Last Filed: 04/29/19 01:30> Diagnostic/Tx/Re-eval Chest X-Ray - ED: 1 View, Read by ED Physician, Read by Radiologist, No Acute Disease Restraints applied: No Repeat interview and exam performed by/time: Khalif the physician clinical nursing assistant at 1730 On arrival patient does admit to taking 10 325 mg iron tablets. He is hemodynamically stable. He is not having any abdominal pain and has not had any nausea or vomiting. I did immediately after my evaluation contact poison control. After discussion with them we determined that the patient has taken a dose of approximately 10 mg/kg of elemental iron. Poison control informed me that that is not a toxic dose. They state that he may have some nausea and vomiting. They recommend checking an iron level at 2 hours and attempting to obtain a KUB and a chest x-ray to see how much iron he actually ingested. If he is asymptomatic at 6 hours no further monitoring is indicated. Laboratory work-up was unremarkable. Toxicology positive for amphetamines and cannabinoids. Patient remained stable. He is not having any vomiting. He is not having any abdominal pain. [employer] slip will be completed for suicide attempt he is currently being seen by crisis for evaluation for admission to a psychiatric facility. <Khalif Trivedi - Last Filed: 04/28/19 17:36> Patient was seen with me. I did a [id number] evaluation with the patient. Patient presents with overdose of iron. Patient states he took 10 iron tablets of 325 mg. Patient states he did this to attempt suicide. Patient states he took these approximately 1 hour prior to arrival. Patient admits to nausea but denies any vomiting. Patient admits to some mild abdominal pain. Patient denies any fevers or chills. Vital signs are stable. Patient is afebrile. Patient is in no acute distress. Oral mucosa is pink and moist. Neck is supple. Trachea is midline. There is no JVD. Heart was regular rate and rhythm. Lungs are clear and equal bilaterally. Abdomen is soft. There is mild diffuse tenderness. There is no rebound or guarding noted. Initial iron level was 361 with iron saturation of 94.2%. This was repeated and repeat iron level was 266 at 20:05. Case was discussed with poison control. They stated that since the level is going down and the patient is not having any GI symptoms he is medically cleared for psychiatric evaluation. Case was discussed with crisis. They will be in to evaluate the patient. Patient will be transferred to [facility] for inpatient psychiatric treatment. Patient understood and was agreeable with the plan. All questions were answered. <Richard Miller - Last Filed: 04/29/19 01:30> ED Disposition <Khalif Trivedi - Last Filed: 04/28/19 17:36> <Richard Miller - Last Filed: 04/29/19 01:30> - Plan for ED Patient: Disposition: Psychiatric Hospital or Unit Diagnosis: Suicide attempt by drug overdose Referrals: Care Physician,No Primary [Primary Care Provider] -
[2019-04-28 16:46] LABS: ALB/GLOB Ratio 1.1 RATIO (0.9-2.4); AST(SGOT) 20 U/L (15-37); Alanine Aminotransfer ALT/SGPT 24 U/L (16-61); Alkaline Phosphatase 98 U/L (45-117); Anion Gap 10 (5-15); BUN 15 mg/dL (7-18); BUN/Creat Ratio 14.7 RATIO (10-20); Calcium,Total 9.6 mg/dL (8.5-10.1); Chloride 105 mmol/L (98-107); Creatinine, Serum 1.02 mg/dL (0.70-1.30); EST Glomerular Filtration Rate 94 mL/min (>60); Est Glom Filt Rate - Afr Amer 113 mL/min (>60); Globulin 4.5 g/dL (2.2-4.2); Glucose 115 mg/dL (74-106); Potassium 3.7 mmol/L (3.5-5.1); Protein, Total 9.5 g/dL (6.4-8.2); Sodium Level 139 mmol/L (136-145)
[2019-04-28 16:52] LABS: Alcohol, Blood (Medical)-Serum < 3.0 mg/dL
[2019-04-28 17:53] LABS: Acetaminophen (Tylenol) Level < 2.0 ug/mL (10.0-30.0)
[2019-04-28 18:53] LABS: Iron 391 ug/dL (65-175); Iron Binding Capacity,Total 415 ug/dL (250-450); PERCENT IRON SATURATION 94.2 % (15.0-55.0)
[2019-04-28 21:00] LABS: Iron 266 ug/dL (65-175)
[2019-04-28] MEDS: Ondansetron ODT 4 MG Tablet PO (21:38)
[2019-04-29] VITALS (9 sets, daily range): BP systolic 128–150; BP diastolic 84–105; PULSE 82–87; RESP 14–20; TEMP 36.4; O2SAT 95–99
== END 2019-04-29 08:28 ==
PROVIDERS: Emergency Medicine; Emergency Provider Physician Assistant Medical
DX: F32.9 Major depressive disorder, single episode, unspecified (principal); F60.2 Antisocial personality disorder; T45.4X2A Poisoning by iron and its compounds, intentional self-harm, initial encounter; Y92.9 Unspecified place or not applicable; Z59.0 Homelessness; F17.200 Nicotine dependence, unspecified, uncomplicated; F11.10 Opioid abuse, uncomplicated; F14.10 Cocaine abuse, uncomplicated; F15.10 Other stimulant abuse, uncomplicated; F12.10 Cannabis abuse, uncomplicated
CPT/HCPCS: 71045; 74018; 80053; 80307; 80320; 80329; 81001; 83540; 83550; 85025; 99285; J7030; A4216; G0480

== ENCOUNTER 2019-05-15 01:23 | Emergency (ER) | payer MEDICAID, SELFPAY ==
[2019-04-28 15:47] VITALS: BMI 20.5
[2019-05-15 01:24] VITALS: BP 129/85; PULSE 129; RESP 16; TEMP 36.5; O2SAT 98; BMI 20.3
[2019-05-15 01:29] VITALS: TEMP 36.5
--- NOTE | 2019-05-15 02:36 | ED.VIS.GEN ---
History of Present Illness Chief Complaint: Rash Informant: Patient Narrative: Patient stated he has had hives on and off for the last 2 weeks. He had this also in April after taking Keflex. Stated that the hives went away and then came back again 2 weeks ago. He notices them diffusely. The itch. He is tried Benadryl intermittently with no significant relief. The itch. He is never had this before. Current severity is mild. He is also having a mild sore throat with sore lymph nodes in his neck since today. No home treatment for this. - Past Medical History (1) Suicide attempt by drug overdose Status: Acute (2) Alcohol abuse Status: Chronic (3) Antisocial personality disorder Status: Chronic (4) Anxiety Status: Chronic (5) Cocaine abuse Status: Chronic (6) Depression Status: Chronic (7) Heroin abuse Status: Chronic (8) Methamphetamine abuse Status: Chronic (9) Tobacco use Status: Chronic Past Medical History - Allergies and Home Meds Allergies/Adverse Reactions: Allergies Penicillins Allergy (Verified 05/15/19 01:29) Rash cephalexin [From Keflex] Adverse Reaction (Verified 05/15/19 01:29) Rash Primary Care Physician: Care Physician,No Primary [Primary Care Provider] - Prior records reviewed: Yes Past Medical History: - - See problem list Surgical History: no surgical history Lives: With Family Smoking Status: Current every day smoker Alcohol: None Drugs: None - Family History Maternal Family History: Reports: Unknown - Patient currently unable to give reliable family history. Paternal Family History: Reports: Unknown - Patient currently unable to give reliable family history. Review of Systems General: Denies: Chills, Fever, Sweats Eyes: Denies: Visual changes - bilaterally, Diplopia ENT: Reports: Sore throat. Denies: Rhinorrhea Cardiovascular: Denies: Chest pain, Palpitations Respiratory: Denies: Dyspnea, Cough, Dyspnea on exertion Gastrointestinal: Denies: Abdominal pain, Nausea, Vomiting, Diarrhea, Melena, Hematochezia Genitourinary: Denies: Dysuria, Hematuria, Frequency Musculoskeletal: Denies: Back pain, Extremity Pain Skin: Reports: Rash. Denies: Wounds Neurological: Denies: Headache, Weakness, Numbness Physical Exam Vital Signs/Narrative: Vital Signs Temp Pulse Resp BP Pulse Ox 05/15/19 01:29 97.7 F L 05/15/19 01:24 97.7 F L 129 H 16 129/85 H 98 General: Well nourished, Well developed, No Acute Distress Head: Normocephalic, Atraumatic Eyes: Perrl, EOMI ENT: Moist mucous membranes, No rhinorrhea, - - 2+ mild erythemic tonsils without exudate bilateral Neck: Supple, Nontender Cardiovascular: Regular rate, Regular rhythm, No murmurs Respiratory: No distress, CTA bilaterally, Chest nontender Abdomen: Soft, Nontender, Nondistended, Normal bowel sounds Back: Nontender, Normal Inspection Extremities: Nontender, No edema Skin: Rash - She has hives on his bilateral forearms and chest and abdomen.. Negative for: Normal color, No rash Neurological: Alert, Oriented x3, Cranial nerves II-XII grossly intact, Normal Strength, Normal Sensation Psychological: Normal affect, Normal Mood Diagnostic/Tx/Re-eval - Medical Decision Making Rapid strep negative. At this time I feel he likely has a viral tonsillitis. He will take [id number] for this. Given prednisone for his hives. He stated Benadryl has not helped much. He will receive prescription for prednisone for the next 7 days. ED Disposition - Plan for ED Patient: Disposition: Home or Assisted Living Diagnosis: Urticaria Instructions: Understanding Urticaria (Hives) Prescriptions: predniSONE tablet 60 mg PO DAILY #21 tab Transmission Status: Pending to [id number] Referrals: Care Physician,No Primary [Primary Care Provider] -
[2019-05-15] MEDS: predniSONE 20 MG Tablet 60 MG PO (02:46)
[2019-05-15 02:47] VITALS: BP 126/86; PULSE 112; RESP 16; O2SAT 98
== END 2019-05-15 02:54 | disposition home or self-care (01) ==
PROVIDERS: Emergency Provider Emergency Medicine
DX: L50.9 Urticaria, unspecified (principal); F17.200 Nicotine dependence, unspecified, uncomplicated
CPT/HCPCS: 87077; 87880; 99283

== ENCOUNTER 2020-12-25 19:19 | Emergency (ER) | payer MEDICAID, SELFPAY ==
[2020-12-25 19:21] VITALS: BP 139/83; PULSE 122; RESP 18; TEMP 36.6; O2SAT 98; BMI 21.5
--- NOTE | 2020-12-25 19:58 | EDS_ITS ---
HPI History of Present Illness Chief Complaint: Nausea/Vomiting Informant: patient and spouse/S.O. Narrative Narrative: 29-year-old female presents the emergency room with a 27-hour history of vomiting. Patient states he simply cannot stop vomiting. Feels like he has been punched in his epigastrium. He denies any significant medical problems. No prior gallbladder or pancreatic issues. He notes he has had chronic diarrhea for 6 months. He is a multitime daily user of cannabis. He denies any fevers. PFSH PFSH no medical history Home Medications NK 12/25/20 [History Last Taken Unknown] famotidine 20 mg PO BID #28 tablet 12/25/20 [Rx Last Taken Unknown] ondansetron 4 mg PO Q6H PRN PRN #15 tab 12/25/20 [Rx Last Taken Unknown] Allergy/AdvReac Type Severity Reaction Status Date / Time Penicillins Allergy Rash Verified 12/25/20 19:23 cephalexin [From Keflex] AdvReac Rash Verified 12/25/20 19:23 no surgical history Social History (Updated 12/25/20 @ 19:[address] Cristiano Morris, DO) Smoking Status: Current every day smoker tobacco type: cigarettes substance use type: marijuana ROS ROS ED Constitutional Constitutional ED: Denies chills or weight loss Eyes Eyes: Denies change in vision or diplopia ENT ENT ED: Denies ear pain, rhinorrhea or sore throat Cardiovascular Cardiovascular: Denies chest pain, orthopnea, palpitations or racing heartbeat Respiratory/Chest Respiratory/Chest: Denies cough, dyspnea or orthopnea Gastrointestinal Gastrointestinal: Reports abdominal pain, diarrhea, nausea and vomiting Genitourinary Genitourinary ED: Denies dysuria, hematuria or urinary frequency Musculoskeletal Musculoskeletal: Denies arthralgias or myalgias Integumentary Denies abscess or rash Neurologic Neurologic: Denies headache(s) or weakness Psychiatric Psychiatric: Denies anxiety, depression, suicidal ideation or suicidal thoughts Endocrine Endocrinology: Denies polydipsia, polyphagia or polyuria Allergic/Immunologic Allergic/Immunologic ED: Denies mouth swelling, tongue swelling or urticaria EXAM Physical Exam Narrative Exam Narrative: Patient is actively vomiting Const Vital Signs: 12/25/20 19:21 Temperature 97.8 F Temperature Source Temporal Pulse Rate 122 H Respiratory Rate 18 Blood Pressure 139/83 H Blood Pressure Mean 101 Pulse Ox 98 Oxygen Delivery Method Room Air Positive well nourished and well developed General Appearance ED: well developed HEENT Reports normocephalic, head/scalp atraumatic and moist mucous membranes Eyes PERRL and EOMs intact bilaterally Neck no lymphadenopathy, supple and no JVD Resp normal respiratory effort and clear to auscultation bilaterally Cardio regular rate and no murmurs Rate: tachycardic GI Palpation: soft and tender; Negative for guarding or rebound tenderness present Back/Spine no CVA tenderness and normal ROM Extremity normal to inspection General Extremety ED: Negative for edema General Extremity: Negative for edema Neuro oriented x3 and CN's II-XII intact bilaterally Sensorium / Orientation: alert Motor Exam: strength 5/5 throughout Psych mental status grossly normal Mood & Affect: Negative for depressed or tearful Skin no rashes or lesions noted and no wounds MDM MDM MDM Narrative Medical decision making narrative: Basic blood work was negative. Patient received IV fluids Ativan Zofran and famotidine. Repeat examination shows that he has not vomited anymore. There is a high likelihood this could be cannabis induced hyperemesis syndrome. I write for Zofran at home as well as Pepcid. Would recommend abstinence from cannabis. Follow-up with primary care. Lab Data Attestation: I reviewed the patient's lab results. Labs: Laboratory Results - last 24 hr 12/25/20 12/25/20 20:16 20:16 WBC 7.8 RBC 5.50 Hgb 16.8 H Hct 47.9 MCV 87.1 MCH 30.5 MCHC 35.1 RDW Std Deviation 37.2 RDW Coeff of Saeed 11.6 Plt Count 319 MPV 9.2 Immature Gran % (Auto) 0.100 Neut % (Auto) 55.3 Lymph % (Auto) 36.7 Graves % (Auto) 7.0 Eos % (Auto) 0.4 Baso % (Auto) 0.5 Absolute Neuts (auto) 4.3 Absolute Lymphs (auto) 2.87 Nucleated RBC % 0 Sodium 138 Potassium 3.2 L Chloride 102 Carbon Dioxide 24.0 Anion Gap 12 BUN 20 H Creatinine 1.22 Estim Creat Clear Calc 87.53 Est GFR (MDRD) Af Amer 91 Est GFR (MDRD) Non-Af 75 BUN/Creatinine Ratio 16.4 Glucose 110 H Calcium 9.8 Total Bilirubin 1.40 H AST 19 ALT 24 Alkaline Phosphatase 79 Total Protein 9.0 H Albumin 5.1 H Globulin 3.9 Albumin/Globulin Ratio 1.3 Lipase 240 Discharge Plan Triage Chief Complaint: Nausea/Vomiting ED Provider: Cristiano Morris Dx/Rx/DC Orders Clinical Impression: Vomiting Instructions: ED Cyclic Vomiting Syndrome Prescriptions: New famotidine [famotidine] 20 MG tablet 20 mg PO BID Qty: 28 RF: 0 ondansetron [ondansetron] 4 MG tablet 4 mg PO Q6H PRN PRN (Reason: Nausea) Qty: 15 RF: 0 No Action NK RF: 0 Primary Care Provider: Care Physician,No Primary Referrals: Teresa Lane [NON-STAFF] - As soon as possible Care Physician,No Primary [Primary Care Provider] - Disposition Disposition: Home, Self Care
[2020-12-25] MEDS: 0.9% Normal Saline 1,000 ML 1000 ML IV (20:23)
[2020-12-25] MEDS: Ondansetron 4 MG/2 ML Vial IV (20:24)
[2020-12-25] MEDS: LORazepam 2 MG/ML Syringe 0.5 MG IV (20:24)
[2020-12-25 20:25] LABS: Absolute Lymphocyte Count 2.87 X10^3/uL (0.83-4.51); Absolute Neutrophil Count 4.3 X10^3/uL (2.0-7.7); Basophil# 0.04 X10^3/uL; Basophil% 0.5 % (0-1); Eosinophil# 0.03 X10^3/uL; Eosinophils% 0.4 % (0-5); Hematocrit 47.9 % (40-54); Hemoglobin 16.8 g/dL (13.0-16.5); Lymphocyte # 2.87 X10^3/ul (0.83-4.51); Lymphocyte % 36.7 % (19-41); Mean Corp Hgb Conc 35.1 g/dL (32-36); Mean Corpuscular Hgb 30.5 pg (27.0-32.0); Mean Corpuscular Volume 87.1 fL (80-94); Mean Platelet Vol. 9.2 fl (6.2-12.0); Monocyte# 0.55 X10^3/uL; NRBC Flagged by Analyzer 0 % (0-5); Neutrophil # 4.32 X10^3/uL (2.7-7.7); Neutrophil % 55.3 % (47-70); Platelet Count 319 K/mm3 (150-450); RBC Distribution Width CV 11.6 % (11.6-14.6); RBC Distribution Width SD 37.2 fl (35.1-43.9); White Blood Count 7.8 K/mm3 (4.4-11.0)
[2020-12-25] MEDS: Famotidine 200 MG/20 ML MDV 20 MG in 0.9% Normal Saline (Pres. free 8 ML 300 MG IV (20:40)
[2020-12-25 20:50] LABS: ALB/GLOB Ratio 1.3 RATIO (0.9-2.4); AST(SGOT) 19 U/L (15-37); Alanine Aminotransfer ALT/SGPT 24 U/L (16-61); Albumin, Serum 5.1 g/dL (3.2-5.0); Alkaline Phosphatase 79 U/L (45-117); Anion Gap 12 (5-15); BUN 20 mg/dL (7-18); BUN/Creat Ratio 16.4 RATIO (10-20); Calcium,Total 9.8 mg/dL (8.5-10.1); Chloride 102 mmol/L (98-107); Creatinine, Serum 1.22 mg/dL (0.70-1.30); EST Glomerular Filtration Rate 75 mL/min (>60); Est Glom Filt Rate - Afr Amer 91 mL/min (>60); Estimated Creatinine Clearance 87.53 ml/min; Globulin 3.9 g/dL (2.2-4.2); Glucose 110 mg/dL (74-106); Lipase 240 U/L (73-393); Potassium 3.2 mmol/L (3.5-5.1); Sodium Level 138 mmol/L (136-145)
[2020-12-25 22:01] VITALS: BP 141/98; PULSE 73; RESP 15; O2SAT 97
== END 2020-12-25 22:02 | disposition home or self-care (01) ==
PROVIDERS: Emergency Provider Emergency Medicine
DX: R11.2 Nausea with vomiting, unspecified (principal); F12.90 Cannabis use, unspecified, uncomplicated; F17.210 Nicotine dependence, cigarettes, uncomplicated
CPT/HCPCS: 80053; 83690; 85025; 96361; 96374; 96375; 99283; J7030; J2405; J3490

== ENCOUNTER 2021-06-17 10:42 | Outpatient (CLI) | payer MEDICAID, SELFPAY | END 2021-06-17 23:59 | disposition short-term general hospital (02) | LOC: LABSPEC 10:43 | PROVIDERS: Referring Provider Physician Assistant; Visit Provider Physician Assistant | DX: U07.1 COVID-19 (principal) | CPT/HCPCS: 87635; U0003; U0005 ==

== ENCOUNTER 2021-06-18 09:22 | Emergency (ER) | payer MEDICAID, SELFPAY ==
[2021-06-18 09:22] VITALS: BP 136/110; PULSE 84; RESP 18; TEMP 36.5; O2SAT 99
--- NOTE | 2021-06-18 09:58 | EDS_ITS ---
HPI HPI - GI History of Present Illness Chief Complaint: Nausea/Vomiting Narrative Narrative: 30-year-old male states that he has been vomiting for 2 days. He states having difficulty holding on food or fluids. He notes some small blood tingeing in his emesis. He describes burning in his esophagus. Patient does state that he tested positive for COVID a couple of days ago. He describes low- grade fevers but otherwise he is not having chest pain, cough, or shortness of breath. PFSH PFSH Medical History no medical history Home Medications famotidine 20 mg PO BID #28 tablet 12/25/20 [Rx Last Taken Unknown] ondansetron 4 mg PO Q6H PRN PRN #15 tab 12/25/20 [Rx Last Taken Unknown] ondansetron 4 mg PO Q8H PRN PRN #14 tab 06/18/21 [Rx Last Taken Unknown] promethazine 25 mg PO Q8H PRN PRN #14 tablet 06/18/21 [Rx Last Taken Unknown] Allergy/AdvReac Type Severity Reaction Status Date / Time Penicillins Allergy Rash Verified 12/25/20 19:23 cephalexin [From Keflex] AdvReac Rash Verified 12/25/20 19:23 Social History Smoking Status: Current every day smoker tobacco type: cigarettes substance use type: marijuana ROS ROS ED Constitutional Constitutional ED: Reports chills and fever(s) ENT ENT ED: Denies rhinorrhea or sore throat Cardiovascular Cardiovascular: Denies chest pain or palpitations Respiratory/Chest Respiratory/Chest: Denies cough or dyspnea Gastrointestinal Gastrointestinal: Reports nausea and vomiting; Denies abdominal pain Genitourinary Genitourinary ED: Denies dysuria or hematuria Musculoskeletal Musculoskeletal: Reports myalgias; Denies arthralgias or neck pain Integumentary Denies abscess or rash Neurologic Neurologic: Denies headache(s), paresthesias or weakness EXAM Physical Exam Const Vital Signs: 06/18/21 09:22 Temperature 97.7 F L Temperature Source Temporal Pulse Rate 84 Respiratory Rate 18 Blood Pressure 136/110 H Blood Pressure Mean 118 Pulse Ox 99 Oxygen Delivery Method Room Air Positive well nourished General Appearance ED: NAD; Negative for pallor HEENT Reports moist mucous membranes normocephalic and atraumatic Eyes PERRL and EOMs intact bilaterally Resp normal respiratory effort and clear to auscultation bilaterally Cardio regular rate and regular rhythm GI non-tender and non-distended Palpation: soft Neuro Sensorium / Orientation: alert, oriented to person, oriented to place and oriented to time Psych mental status grossly normal and thought process normal Skin General Skin Exam: Negative for jaundice or pallor MDM MDM MDM Narrative Medical decision making narrative: Patient presented with nausea/vomiting. He is currently diagnosed with COVID-19. He is given Zofran and a GI cocktail. He feels improved after this. I will discharge him home with Zofran and Phenergan. He can alternate these as needed. He is counseled to hydrate well and drink lots of fluids. Patient given return precautions. Impression: 1. History of COVID-19 2. Nausea/ Discharge Plan Triage Chief Complaint: Nausea/Vomiting ED Provider: Wilfred Flood Dx/Rx/DC Orders Instructions: Coronavirus Disease 2019 (COVID-19): Caring for Yourself or Others Prescriptions: New ondansetron 4 mg tablet,disintegrating 4 mg PO Q8H PRN PRN (Reason: Nausea) Qty: 14 RF: 0 promethazine 25 mg tablet 25 mg PO Q8H PRN PRN (Reason: Nausea) Qty: 14 RF: 0 No Action famotidine [famotidine] 20 MG tablet 20 mg PO BID Qty: 28 RF: 0 ondansetron [ondansetron] 4 MG tablet 4 mg PO Q6H PRN PRN (Reason: Nausea) Qty: 15 RF: 0 Primary Care Provider: Care Physician,No Primary Referrals: Pernell Azul MD [STAFF PHYSICIAN] - As Needed Care Physician,No Primary [Primary Care Provider] - Disposition Disposition: Home, Self Care Discharge Date/Time: 06/18/21 10:55
[2021-06-18] MEDS: proMETHazine 25 MG/ML Syringe 12.5 MG IM (10:06)
[2021-06-18] MEDS: Mag Hydrox/Al Hydrox/Simeth 30 ML UDC PO (10:06)
[2021-06-18] MEDS: Ondansetron ODT 4 MG Tablet PO (10:06)
== END 2021-06-18 10:55 | disposition home or self-care (01) ==
LOC: ED 10:50
PROVIDERS: Emergency Provider Student in an Organized Health Care Education/Training Program; Visit Provider Student in an Organized Health Care Education/Training Program
DX: U07.1 COVID-19 (principal); F17.210 Nicotine dependence, cigarettes, uncomplicated
CPT/HCPCS: 96372; 99283

== ENCOUNTER 2021-09-07 04:35 | Emergency (ER) | payer OTHER, MEDICAID, SELFPAY ==
[2021-09-07 04:38] VITALS: BP 122/86; PULSE 82; RESP 22; TEMP 37.1; O2SAT 98; BMI 18.8
--- NOTE | 2021-09-07 04:52 | CT_ITS ---
EXAM: CT ABDOMEN AND PELVIS WITH IV CONTRAST- CT Abdomen And Pelvis W/ Contrast Injection HISTORY: abd pain TECHNIQUE: Routine protocol CT abdomen pelvis. IV Contrast: IV 100mL Isovue-300 . Oral Contrast: without. Sagittal and coronal images were reconstructed. RADIATION DOSAGE (If Supplied By Facility): CTDIvol = ( 5.95 ) mGy, DLP = ( 512.01 ) mGycm Individualized dose optimization techniques were used for this CT. COMPARISON: CT abdomen pelvis 12/01/2015. Images and report. LIMITATIONS: None. FINDINGS: LOWER CHEST: Unremarkable. LIVER: Unremarkable. GALLBLADDER/BILE DUCTS: Unremarkable. PANCREAS: Unremarkable. SPLEEN: Unremarkable. ADRENAL GLANDS: Unremarkable. KIDNEYS / URETERS: Unremarkable. BOWEL / MESENTERY: Suggestion of wall thickening transverse colon through the sigmoid colon is likely exaggerated by suboptimal distention. No bowel obstruction. APPENDIX: Not identified. No findings to suggest acute appendicitis. PERITONEUM: No free air. No free fluid. VESSELS: Abdominal aorta is normal caliber. RETROPERITONEUM: Unremarkable. REPRODUCTIVE ORGANS: Unremarkable. BLADDER: Unremarkable. ABDOMINAL WALL: Unremarkable. BONES: No acute abnormality. OTHER: None. IMPRESSION: Suggestion of colonic wall thickening most likely nondistention, early acute colitis less likely. No other acute findings. Electronically Signed: Uyen Villalobos MD at 5:50 EDT Reading Location ID and State: [address] [place] [address] Tel , Service support , CT/Abdomen/Pelvis W IV Cont ONLY
[2021-09-07 05:06] LABS: Absolute Neutrophil Count 10.1 X10^3/uL (2.0-7.7); Basophil# 0.02 X10^3/uL; Basophil% 0.2 % (0-1); Eosinophil# 0.02 X10^3/uL; Eosinophils% 0.2 % (0-5); Hematocrit 48.2 % (40-54); Hemoglobin 16.9 g/dL (13.0-16.5); Lymphocyte % 17.2 % (19-41); Mean Corp Hgb Conc 35.1 g/dL (32-36); Mean Corpuscular Hgb 30.8 pg (27.0-32.0); Mean Platelet Vol. 9.3 fl (6.2-12.0); Monocyte# 0.37 X10^3/uL; Monocyte% 2.9 % (0-10); NRBC Flagged by Analyzer 0 % (0-5); Neutrophil # 10.13 X10^3/uL (2.7-7.7); Neutrophil % 79.1 % (47-70); Platelet Count 302 K/mm3 (150-450); RBC Distribution Width CV 11.4 % (11.6-14.6); RBC Distribution Width SD 36.8 fl (35.1-43.9); Red Blood Count 5.48 M/mm3 (4.6-6.2); White Blood Count 12.8 K/mm3 (4.4-11.0)
[2021-09-07] MEDS: Haloperidol Lactate 5 MG/ML Vial IV (05:11)
[2021-09-07] MEDS: 0.9% Normal Saline 1,000 ML 999 ML IV (05:11)
[2021-09-07 05:23] LABS: AST(SGOT) 17 U/L (15-37); Alanine Aminotransfer ALT/SGPT 26 U/L (16-61); Albumin, Serum 4.8 g/dL (3.2-5.0); Alkaline Phosphatase 65 U/L (45-117); Anion Gap 6 (5-15); BUN 17 mg/dL (7-18); BUN/Creat Ratio 18.7 RATIO (10-20); Bilirubin, Direct 0.21 mg/dL (0.00-0.30); Calcium,Total 9.4 mg/dL (8.5-10.1); Chloride 104 mmol/L (98-107); Creatinine, Serum 0.91 mg/dL (0.70-1.30); EST Glomerular Filtration Rate 105 mL/min (>60); Est Glom Filt Rate - Afr Amer 127 mL/min (>60); Estimated Creatinine Clearance 101.54 ml/min; Globulin 3.6 g/dL (2.2-4.2); Glucose 113 mg/dL (74-106); Lipase 239 U/L (73-393); Potassium 3.8 mmol/L (3.5-5.1); Protein, Total 8.4 g/dL (6.4-8.2); Sodium Level 139 mmol/L (136-145)
[2021-09-07 06:23] LABS: Color, Urine Yellow (Yellow); Glucose, Dipstick Normal (Normal); Ketone-Dipstick 50 mg/dl (Negative); Leukocyte Esterase-Dipstick 25 /ul (Negative); Mucous, Urine 0 SEEN /hpf (<or=2+); Nitrite-Dipstick Negative (Negative); Occult Blood-Urine Negative /ul (Negative); Protein-Dipstick 15 mg/dl (Negative); Red Blood Cells-Urine 0 SEEN /hpf (0-5); Squamous Epithelial Cells - UA 0 SEEN /hpf (0-5); Urine Bilirubin Dipstick Negative (Negative); Urine Clarity Clear (Clear); Urine Urobilinogen Normal (Normal)
[2021-09-07 06:31] LABS: Amorphous Sediment 1+; Bacteria 2+ /hpf (None Seen); White Blood Cells 0-5 SEEN /hpf (0-5)
--- NOTE | 2021-09-07 07:17 | EX.ED.DYSGE1 ---
HPI History of Present Illness Chief Complaint: Nausea/Vomiting Narrative Narrative: Patient is a 30-year-old male who states he has been having back problems for 1 to 2 weeks. He states there has been no known injury. He denies any loss of bowel or bladder control or IV drug use. He states he went to an urgent care today and was given medication but prior to taking them developed bouts of nausea and vomiting. He states that he was advised by the urgent care that if his symptoms worsen he should go to the ER for further evaluation and therefore presents at this time. PFSH PFS Home Medications sulfamethoxazole-trimethoprim [Bactrim DS] 1 tab PO BID 7 Days #14 tab 09/07/21 [Rx Last Taken Unknown] Allergy/AdvReac Type Severity Reaction Status Date / Time Penicillins Allergy Rash Verified 09/07/21 04:36 cephalexin [From Keflex] AdvReac Rash Verified 09/07/21 04:36 Surgical History (Updated 09/07/21 @ 04:37 by Ruben Mustafa) Hx of appendectomy Social History Smoking Status: Current every day smoker tobacco type: cigarettes substance use type: marijuana ROS ROS ED Constitutional Constitutional ED: Denies chills or fever(s) ENT ENT ED: Denies sore throat Cardiovascular Cardiovascular: Denies chest pain Respiratory/Chest Respiratory/Chest: Denies cough or dyspnea Gastrointestinal Gastrointestinal: Reports abdominal pain, nausea and vomiting; Denies diarrhea Genitourinary Genitourinary ED: Denies dysuria or hematuria Musculoskeletal Musculoskeletal: Reports back pain; Denies myalgias Integumentary Denies rash Neurologic Neurologic: Denies headache(s) Hematologic/Lymphatic Hematologic/Lymphatic: Denies easy bleeding or easy bruising EXAM Physical Exam Const Vital Signs: 09/07/21 04:38 Temperature 98.8 F Temperature Source Temporal Pulse Rate 82 Respiratory Rate 22 H Blood Pressure 122/86 H Blood Pressure Mean 98 Pulse Ox 98 Oxygen Delivery Method Room Air Positive well nourished and well developed General Appearance ED: well developed HEENT Reports moist mucous membranes Eyes PERRL and EOMs intact bilaterally Neck supple Resp normal respiratory effort and clear to auscultation bilaterally Cardio regular rate and regular rhythm Rate: other Other Details: Radial pulses are +2-4 bilaterally are equal and symmetric GI non-tender, non-distended and no masses GI Narrative: There is mild diffuse pain on palpation without voluntary guarding or rigidity no pulsatile mass Auscultation: normoactive bowel sounds Palpation: soft Back/Spine Back/Spine Narrative: Bony forming or step-off of the thoracic or lumbar spine. There is mild pain with palpation in the lower thoracic/upper lumbar region. Pain is greatest in the left CVA region with palpation and this does also worsen with motion. Otherwise no saddle anesthesia negative straight leg raise no clonus or Babinski and patellar reflexes are plus 2 out of 4 bilaterally Extremity normal to inspection Neuro oriented x3 and CN's II-XII intact bilaterally Sensorium / Orientation: alert Motor Exam: strength 5/5 throughout Psych mental status grossly normal Skin no rashes or lesions noted Skin Narrative: No overlying soft tissue changes to suggest trauma or infection General Skin Exam: Negative for jaundice MDM MDM MDM Narrative Medical decision making narrative: Patient presented to the ER afebrile with no history or physical exam findings to suggest cauda equina or epidural abscess. However as the majority of his pain was over the left flank there was concern he was developing a possible kidney stone or pyelonephritis and therefore elected to perform basic laboratory studies. Patient's white count is slightly elevated at 12.8 but there is no left shift and otherwise he has no signs of acute kidney injury. Urine does show +2 bacteria without obvious contamination. Patient denies any dysuria or penile discharge or concern for STD and therefore does not want tested or treated for this. At this time he will be placed on antibiotics because of the bacteria noted within the urine while the urine was sent for culture. The CT scan did not show any inflammation around the kidney or obvious stone or other acute pathology and therefore patient is safe for discharge. He was hydrated and has had resolution of his vomiting after treatment with Haldol. Lab Data Attestation: I reviewed the patient's lab results. Labs: Laboratory Results - last 24 hr 09/07/21 09/07/21 09/07/21 04:39 04:39 06:18 WBC 12.8 H RBC 5.48 Hgb 16.9 H Hct 48.2 MCV 88.0 MCH 30.8 MCHC 35.1 RDW Std Deviation 36.8 RDW Coeff of Saeed 11.4 L Plt Count 302 MPV 9.3 Immature Gran % (Auto) 0.400 Neut % (Auto) 79.1 H Lymph % (Auto) 17.2 L [place] % (Auto) 2.9 Eos % (Auto) 0.2 Baso % (Auto) 0.2 Absolute Neuts (auto) 10.1 H Absolute Lymphs (auto) 2.20 Nucleated RBC % 0 Sodium 139 Potassium 3.8 Chloride 104 Carbon Dioxide 29.0 Anion Gap 6 BUN 17 Creatinine 0.91 Estim Creat Clear Calc 101.54 Est GFR (MDRD) Af Amer 127 Est GFR (MDRD) Non-Af 105 BUN/Creatinine Ratio 18.7 Glucose 113 H Calcium 9.4 Total Bilirubin 1.00 Direct Bilirubin 0.21 AST 17 ALT 26 Alkaline Phosphatase 65 Total Protein 8.4 H Albumin 4.8 Globulin 3.6 Lipase 239 Urine Color Yellow Urine Clarity Clear Urine pH 8.0 Ur Specific [place] 1.010 Urine Protein 15 H Urine Glucose (UA) Normal Urine Ketones 50 H Urine Occult Blood Negative Urine Nitrite Negative Urine Bilirubin Negative Urine Urobilinogen Normal Ur Leukocyte Esterase 25 H Urine RBC 0 SEEN Urine WBC 0-5 SEEN Ur Squamous Epith Cells 0 SEEN Amorphous Sediment 1+ Urine Bacteria 2+ Urine Mucus 0 SEEN Radiography Diagnostic Testing: Clinical Impression(s) from Imaging Studies Abdomen/Pelvis CT 09/07/21 04:52 Discharge Plan Triage Chief Complaint: Nausea/Vomiting ED Provider: Ovidio Holley Dx/Rx/DC Orders Clinical Impression: Nausea & vomiting, Urinary tract infection Instructions: Urinary Tract Infections in Men, ED Vomiting (Adult) Prescriptions: New sulfamethoxazole-trimethoprim [Bactrim DS] 800-160 mg tablet 1 tab PO BID 7 Days Qty: 14 RF: 0 Primary Care Provider: Care Physician,No Primary Referrals: Fast,Jeaneth, DO [NON-STAFF] - 3-5 Days if not improving Care Physician,No Primary [Primary Care Provider] - Activity Restrictions/Additional Instructions: Please take the promethazine/Phenergan to help control any further bouts of nausea and vomiting and use the Bactrim/antibiotic as prescribed today because of the bacteria noted in your urine Disposition Disposition: Home, Self Care
[2021-09-07 07:28] VITALS: BP 131/88; PULSE 76; RESP 16; O2SAT 96
[2021-09-07] MEDS: Smz/Tmp Ds Tablet 1 TABLET PO (07:28)
== END 2021-09-07 07:33 | disposition home or self-care (01) ==
PROVIDERS: Emergency Provider Emergency Medicine; Visit Provider Emergency Medicine
DX: N39.0 Urinary tract infection, site not specified (principal); R11.2 Nausea with vomiting, unspecified; F17.210 Nicotine dependence, cigarettes, uncomplicated
CPT/HCPCS: 74177; 80048; 80076; 81001; 83690; 85025; 87086; 96361; 96374; 99284; J7030; Q9967; A4216

== ENCOUNTER 2022-09-17 14:10 | Emergency (ER) | payer OTHER, MEDICAID, SELFPAY ==
[2022-09-17 14:12] VITALS: BP 138/78; PULSE 78; RESP 16; TEMP 36.6; O2SAT 98; BMI 18.6
--- NOTE | 2022-09-17 14:19 | EX.ED.DYSGE1 ---
HPI History of Present Illness Chief Complaint: Nausea/Vomiting Detail of Chief Complaint: She had vomiting x13 since this morning Informant: patient and spouse/S.O. Onset/Context/Timing Onset: Today Context: Sudden Onset Timing: Intermittent Quality: Nausea and vomiting with epigastric pain Location: Upper GI Current Severity: Severe Maximum Severity: Severe Worsened by: Small lesion found on scope 3 months ago . Relieved by: Nothing Associated Symptoms Associated Symptoms: Thirst, dry mouth and lightheadedness Narrative Narrative: Patient is a 31-year-old male who has been seen several times past year for cyclic vomiting. He apparently has an appointment this coming week with Dr. White. When asked if he smokes marijuana the patient became defensive and states the cause of his cyclic vomiting is due to a small lesion that was found on scope 3 months ago. He has history of alcohol binge drinking and had several ER visits in 2017 2018 for drinking and drug use. He states he has used amphetamines in the past. He does admit to smoking marijuana daily. He states he is not going to put up with me asking him questions. Patient was informed that I will not ask any other questions. He does complain of chills and diaphoresis. He denies headache, visual, ocular auditory symptoms. [place] any infectious symptoms. He denies diarrhea. He denies blood or coffee-ground emesis. He denies black or maroon-colored stool. Prior similar symptoms: Yes Recent Illness/Hospitalization: Yes [facility] Medical History Cholecystectomy planned Coffee ground emesis Gastritis GERD (gastroesophageal reflux disease) Home Medications sulfamethoxazole 800 mg-trimethoprim 160 mg tablet (Bactrim DS) 1 tab PO BID 7 days #14 tabs 09/07/21 [Rx Last Taken Unknown] Allergy/AdvReac Type Severity Reaction Status Date / Time Penicillins Allergy Rash Verified 09/17/22 14:11 cephalexin [From Keflex] AdvReac Rash Verified 09/17/22 14:11 Surgical History Hx of appendectomy Social History (Updated 09/17/22 @ 14:[address] Juanjo Nolasco MD) household members: significant other Smoking Status: Current every day smoker tobacco type: cigarettes alcohol intake: former substance use type: marijuana ROS ROS ED Constitutional Constitutional ED: Reports chills, fever(s), subjective and sweats; Denies weight loss Eyes Eyes: Denies blurry vision, change in vision or diplopia ENT ENT ED: Denies ear pain or sore throat Cardiovascular Cardiovascular: Denies chest pain or palpitations Respiratory/Chest Respiratory/Chest: Denies cough, dyspnea or dyspnea on exertion Gastrointestinal Gastrointestinal: Reports abdominal pain, nausea, vomiting and other; Denies constipation, diarrhea or melena Genitourinary Genitourinary ED: Denies dysuria, hematuria or urinary frequency Musculoskeletal Musculoskeletal: Denies arthralgias, back pain or myalgias Neurologic Neurologic: Denies headache(s), paresthesias or weakness Endocrine Endocrinology: Denies cold intolerance or heat intolerance Hematologic/Lymphatic Hematologic/Lymphatic: Reports systems reviewed and no addt'l complaints, except as documented EXAM Physical Exam Const Vital Signs: 09/17/22 14:12 09/17/22 18:08 Temperature 97.8 F Temperature Source Temporal Pulse Rate 78 67 Respiratory Rate 16 18 Blood Pressure 138/78 H 132/82 H Blood Pressure Mean 98 98 Pulse Ox 98 98 Oxygen Delivery Method Room Air Room Air Positive well nourished, well developed and unkempt; Negative for obese, cachectic or contractures General Appearance ED: unkempt, well developed, diaphoretic and pallor; Negative for cachectic, contractures or NAD Nutritional Appearance: Negative for cachectic or obese HEENT Reports dry mucous membranes HEENT Narrative: Head is atraumatic normocephalic. Ears normal. Nares patent. Posterior pharynx unremarkable. Mouth ED: Yes dry mucous membranes Mouth: dry mucous membranes Eyes PERRL and EOMs intact bilaterally General Eye ED: Negative for pale conjunctiva or scleral icterus Neck no lymphadenopathy, supple and no JVD Chest Wall inspection of chest normal and palpation of chest normal Resp normal respiratory effort and clear to auscultation bilaterally Cardio regular rate, regular rhythm, S1 normal heart sound, S2 normal heart sound and no murmurs GI non-distended and no masses; Negative for non-tender or hepatosplenomegaly Auscultation: hypoactive bowel sounds Palpation: soft and tender epigastric; Negative for guarding, splenomegaly, mass or rebound tenderness present Back/Spine no CVA tenderness Extremity normal to inspection General Extremety ED: Negative for edema or tenderness General Extremity: Negative for edema Neuro oriented x3, CN's II-XII intact bilaterally and no sensory deficits noted Neuro Narrative: Gait was up normal. Sensorium / Orientation: alert Motor Exam: strength 5/5 throughout Psych Appearance: unkempt Attitude: agitated Skin no rashes or lesions noted and no wounds Skin Narrative: Patient is slightly diaphoretic General Skin Exam: elasticity normal and pallor; Negative for jaundice MDM MDM MDM Narrative Medical decision making narrative: She has cyclic vomiting. Suspect this is due to daily marijuana use. Patient is insistent this is due to a small lesion that was found on EGD 3 months ago. Patient has bilious emesis fluid noted in emesis bag. We will treat with cyclic vomiting order set. Because of the amount of vomiting has had and symptoms of lightheadedness will obtain a BMP to assess electrolytes and more importantly renal function. History & Record Review Additional record(s) reviewed:: Prior outpatient record (Gastric biopsy revealed mild gastric inflammation. No other abnormalities were reported.) and Prior ED visit Lab Data Attestation: I reviewed the patient's lab results. Lab results narrative: Electrolytes are unremarkable. BUN and creatinine are 22 and 0.98 with a BUN to creatinine ratio of 22:1. Glucose elevated 141 with a normal CO2 and anion gap. These are consistent with dehydration from vomiting. Labs: Laboratory Results - last 24 hr 09/17/22 15:04 Sodium 140 Potassium 4.0 Chloride 108 H Carbon Dioxide 27.0 Anion Gap 5 BUN 22 H Creatinine 0.98 Estim Creat Clear Calc 92.76 Est GFR (MDRD) Af Amer 116 Est GFR (MDRD) Non-Af 96 BUN/Creatinine Ratio 22.6 H Glucose 141 H Calcium 10.3 H Treatment and Re-Evaluation :: Since patient was complaining of pain in the epigastric area. He has not vomited. He was given a GI cocktail. He has vomited 3 times since he received a GI cocktail. We will treat his nausea and vomiting at this time with IV Haldol and will administer IV Protonix. Patient was read test at 1905. Patient would like to go home. His vomiting stopped. Discharge Plan Triage Chief Complaint: Nausea/Vomiting ED Provider: Trell Nolascoo Dx/Rx/DC Orders Clinical Impression: Cyclic vomiting syndrome, Antisocial personality disorder, Cannabis use disorder, Cannabinoid hyperemesis syndrome Instructions: Cannabinoid Hyperemesis Syndrome, ED Cyclic Vomiting Syndrome Prescriptions: No Action sulfamethoxazole-trimethoprim [Bactrim DS] 800-160 mg tablet 1 tab PO BID 7 Days Qty: 14 0RF Primary Care Provider: Vania Maldonado NP Referrals: Deep White DO [Med Staff - Active Staff] - Keep [facility] appointment Care Physician,No Primary [Non-Staff] - Disposition Disposition: Home, Self Care
[2022-09-17] MEDS: LORazepam 2 MG/ML Syringe 0.5 MG IV (15:01)
[2022-09-17] MEDS: Ondansetron 4 MG/2 ML Vial IV (15:01)
--- NOTE | 2022-09-17 15:11 | ED.RN ---
PEPCID NOT FOUND IN ER, CALLED PHARMACY
[2022-09-17] MEDS: Famotidine 200 MG/20 ML MDV 20 MG in 0.9% Normal Saline (Pres. free 8 ML 300 MG IV (15:20)
[2022-09-17 15:25] LABS: Anion Gap 5 (5-15); BUN 22 mg/dL (7-18); BUN/Creat Ratio 22.6 RATIO (10-20); Calcium,Total 10.3 mg/dL (8.5-10.1); Chloride 108 mmol/L (98-107); Creatinine, Serum 0.98 mg/dL (0.70-1.30); EST Glomerular Filtration Rate 96 mL/min (>60); Est Glom Filt Rate - Afr Amer 116 mL/min (>60); Estimated Creatinine Clearance 92.76 ml/min; Glucose 141 mg/dL (74-106); Sodium Level 140 mmol/L (136-145)
[2022-09-17] MEDS: Mag Hydrox/Al Hydrox/Simeth 30 ML UDC PO (16:17)
[2022-09-17] MEDS: Haloperidol Lactate 5 MG/ML Vial 2 MG IV (17:55)
[2022-09-17 18:08] VITALS: BP 132/82; PULSE 67; RESP 18; O2SAT 98
[2022-09-17 19:22] VITALS: BP 164/90; PULSE 64; RESP 18
== END 2022-09-17 19:23 | disposition home or self-care (01) ==
PROVIDERS: Emergency Provider Emergency Medicine; PCP Nurse Practitioner Family; Visit Provider Emergency Medicine
DX: R11.15 Cyclical vomiting syndrome unrelated to migraine (principal); F60.2 Antisocial personality disorder; R10.13 Epigastric pain; F17.210 Nicotine dependence, cigarettes, uncomplicated; R42 Dizziness and giddiness; R11.2 Nausea with vomiting, unspecified; F12.90 Cannabis use, unspecified, uncomplicated
CPT/HCPCS: 80048; 96374; 96375; 99282; J7030; A4216; J2405; J3490

== ENCOUNTER → 2022-09-21 | Outpatient (CLI) | payer OTHER, SELFPAY ==
[2022-09-21 12:22] LABS: Erythrocyte Sedimentation Rate 4 mm/hr (0-20)
[2022-09-21 12:26] LABS: Absolute Lymphocyte Count 2.33 X10^3/uL (0.83-4.51); Absolute Neutrophil Count 2.4 X10^3/uL (2.0-7.7); Basophil# 0.04 X10^3/uL; Basophil% 0.8 % (0-1); Eosinophil# 0.08 X10^3/uL; Eosinophils% 1.5 % (0-5); Hematocrit 45.8 % (40-54); Hemoglobin 15.8 g/dL (13.0-16.5); Lymphocyte # 2.33 X10^3/ul (0.83-4.51); Lymphocyte % 44.7 % (19-41); Mean Corp Hgb Conc 34.5 g/dL (32-36); Mean Corpuscular Hgb 30.7 pg (27.0-32.0); Mean Corpuscular Volume 89.1 fL (80-94); Mean Platelet Vol. 9.2 fl (6.2-12.0); Monocyte# 0.29 X10^3/uL; Monocyte% 5.6 % (0-10); NRBC Flagged by Analyzer 0 % (0-5); Neutrophil % 46.1 % (47-70); Platelet Count 281 K/mm3 (150-450); RBC Distribution Width CV 11.4 % (11.6-14.6); RBC Distribution Width SD 36.8 fl (35.1-43.9); Red Blood Count 5.14 M/mm3 (4.6-6.2); White Blood Count 5.2 K/mm3 (4.4-11.0)
[2022-09-21 13:22] LABS: ALB/GLOB Ratio 1.4 RATIO (0.9-2.4); AST(SGOT) 14 U/L (15-37); Alanine Aminotransfer ALT/SGPT 37 U/L (16-61); Albumin, Serum 4.5 g/dL (3.2-5.0); Alkaline Phosphatase 54 U/L (45-117); Anion Gap 5 (5-15); BUN 18 mg/dL (7-18); BUN/Creat Ratio 22.1 RATIO (10-20); CRP < 2.90 mg/L (0.0-3.0); Calcium,Total 9.5 mg/dL (8.5-10.1); Chloride 108 mmol/L (98-107); Creatinine, Serum 0.81 mg/dL (0.70-1.30); EST Glomerular Filtration Rate 119 mL/min (>60); Est Glom Filt Rate - Afr Amer 143 mL/min (>60); Globulin 3.2 g/dL (2.2-4.2); Glucose 98 mg/dL (74-106); LDH 131 U/L (87-241); Potassium 3.8 mmol/L (3.5-5.1); Protein, Total 7.7 g/dL (6.4-8.2); Sodium Level 140 mmol/L (136-145)
[2022-09-22 13:07] LABS: Anti-Centromere B Ab <0.2 AI (0.0-0.9); Anti-Chromatin <0.2 AI (0.0-0.9); Anti-Jo <0.2 AI (0.0-0.9); Anti-Scleroderma-70 AB <0.2 AI (0.0-0.9); Anti-dsDNA Ab <1 IU/mL (0-9); RNP Ab 0.2 AI (0.0-0.9); SJOGREN'S Anti-SS-A test < 0.2 AI (0.0-0.9); SJOGREN'S Anti-SS-B test < 0.2 AI (0.0-0.9); Smith Ab <0.2 AI (0.0-0.9)
[2022-09-22 16:09] LABS: Endomysial Antibody IgA Negative (Negative); Immunoglobulin A 251 mg/dL (90-386); t-Transglutaminase IgA <2 U/mL (0-3)
[2022-09-25 02:06] LABS: Albumin 4.4 g/dL (2.9-4.4); Alpha-1-Globulins 0.2 g/dL (0.0-0.4); Alpha-2-Globulins 0.8 g/dL (0.4-1.0); Cytoplasmic Ab (C-ANCA) <1:20 titer (Neg:<1:20); Immunoglobulin A 257 mg/dL (90-386); Immunoglobulin E 46 IU/mL (6-495); Immunoglobulin G 991 mg/dL (603-1613); Immunoglobulin M 41 mg/dL (20-172); PROEL- TOTAL PROTEIN 7.4 g/dL (6.0-8.5); Perinuclear Ab (P-ANCA) <1:20 titer (Neg:<1:20)
[2022-09-26 00:07] LABS: Calprotectin, Stool 34 ug/g (0-120)
== END | disposition home or self-care (01) ==
PROVIDERS: PCP Student in an Organized Health Care Education/Training Program; Referring Provider Nurse Practitioner Adult Health; Visit Provider Nurse Practitioner Adult Health
DX: R11.2 Nausea with vomiting, unspecified (principal); K52.9 Noninfective gastroenteritis and colitis, unspecified; R10.10 Upper abdominal pain, unspecified
CPT/HCPCS: 36415; 80053; 82784; 82785; 83516; 83615; 83630; 83993; 84165; 85025; 85652; 86140; 86225; 86235; 86255; 86256; 86334

== ENCOUNTER 2022-10-01 19:30 | Emergency (ER) | payer OTHER, SELFPAY ==
[2022-10-01 19:31] VITALS: BP 133/103; PULSE 89; RESP 16; TEMP 36.1; O2SAT 97
--- NOTE | 2022-10-01 19:34 | ED.RN ---
PT WAS UNABLE TO TALK THROUGHOUT THE ENTIRE TRIAGE PROCESS BECAUSE HE WAS IN SUCH PAIN. HE THEN BROUGHT HIMSELF TO VOMIT A MODERATE AMT OF WATERY BILE. WHEN ASKED PT THE LAST TIME HE SMOKED MARIJUANA HE IMMEDIATELY SAT UP STRAIGHT AND STATED THAT THAT IS NOT THE CAUSE OF THIS AND DR SILVA EVEN TOLD HIM THAT. HE WAS NOT LONGER RROCKING IN PAIN AND WAS WIDE EYED ALERT. WHEN STATED IT WAS A QUESTION REGARDING HIS HISTORY AND THAT I WAS GLAD TO SEE HE COULD NOW ANSWER HIS QUESTIONS HE SAID YES MACY. PT STATES HE SMOKED YESTERDAY. PT WAS THEN ABLE TO AMBULATE TO THE ROOM WITHOUT DISTRESS
--- NOTE | 2022-10-01 19:44 | EDS_ITS ---
HPI HPI - GI History of Present Illness Chief Complaint: Nausea/Vomiting Informant: patient Abdominal Pain/Flank Pain Onset: - (1 year) Context: Gradual Onset Timing: Continuous Location: Epigastric, RUQ and LUQ Worsened by: - (Vomiting) Relieved by: Nothing Nausea/Vomiting/Emesis GI Symptom: Positive for Nausea and Vomiting Onset: Month(s) Diarrhea/Melena/Hematochezia GI Symptom: Positive for Diarrhea; Negative for Melena or Hematochezia Onset: Month(s) Associated Symptoms Associated Symptoms: Negative for Dysuria, Frequency or Hematuria Narrative Narrative: Patient presents with nausea, vomiting, diarrhea, and abdominal pain that has been waxing and waning over the past year. Patient states he has seen a specialist for this. Patient was prescribed medication which normally helps. Patient states he has been unable to keep this down tonight. Patient states his pain is mainly over the upper abdomen. Patient states it is constant. Patient states it is worse with vomiting. Patient states the pain radiates into his chest after he vomits. Patient denies any melena or hematochezia. Patient denies any hematemesis or coffee-ground emesis. Patient denies any dysuria, frequency, or hematuria. [facility] Medical History (Updated 10/01/22 @ 21:[address] Richard Miller DO) Cholecystectomy planned Coffee ground emesis Gastritis GERD (gastroesophageal reflux disease) Home Medications cholestyramine (with sugar) 4 gram oral powder 4 g PO DAILY #348.6 grams 09/21/22 [Rx Last Taken Unknown] pantoprazole 40 mg tablet,delayed release 40 mg PO DAILY #90 tabs 09/26/22 [Rx Last Taken Unknown] Allergy/AdvReac Type Severity Reaction Status Date / Time Penicillins Allergy Rash Verified 10/01/22 19:32 cephalexin [From Keflex] AdvReac Rash Verified 10/01/22 19:32 Surgical History (Updated 10/01/22 @ 19:[address] Richard Miller DO) Hx of appendectomy Hx of cholecystectomy Social History household members: significant other Smoking Status: Current every day smoker tobacco type: cigarettes alcohol intake: former substance use type: marijuana ROS ROS ED Constitutional Constitutional ED: Denies chills or fever(s) Eyes Eyes: Denies blurry vision or change in vision ENT ENT ED: Denies rhinorrhea or sore throat Cardiovascular Cardiovascular: Reports chest pain; Denies palpitations Respiratory/Chest Respiratory/Chest: Denies cough or dyspnea Gastrointestinal Gastrointestinal: Reports abdominal pain, diarrhea, nausea and vomiting Genitourinary Genitourinary ED: Denies dysuria or hematuria Musculoskeletal Musculoskeletal: Denies back pain or neck pain Integumentary Denies abscess or rash Neurologic Neurologic: Denies headache(s) or weakness Allergic/Immunologic Allergic/Immunologic ED: Denies mouth swelling or urticaria EXAM Physical Exam Const Vital Signs: 10/01/22 19:31 Temperature 96.9 F L Temperature Source Temporal Pulse Rate 89 Respiratory Rate 16 Blood Pressure 133/103 H Blood Pressure Mean 113 Pulse Ox 97 Oxygen Delivery Method Room Air Positive well nourished and well developed General Appearance ED: well developed HEENT Reports moist mucous membranes Neck supple and no JVD Resp normal respiratory effort and clear to auscultation bilaterally Cardio regular rate, regular rhythm and no murmurs GI normal to inspection, nondistended, normoactive bowel sounds Palpation: soft and tender epigastric, LUQ and RUQ; Negative for guarding or rebound tenderness present Extremity normal to inspection General Extremety ED: Negative for edema or tenderness General Extremity: Negative for edema Neuro oriented x3, CN's II-XII intact bilaterally and no sensory deficits noted Sensorium / Orientation: alert Motor Exam: strength 5/5 throughout Psych mental status grossly normal Skin no rashes or lesions noted MDM MDM MDM Narrative Medical decision making narrative: Differential diagnosis includes gastroenteritis, cyclic vomiting, gastritis, pancreatitis, and hyperemesis cannabis syndrome. CBC will be obtained to assess for anemia and leukocytosis. Comprehensive metabolic profile will be obtained to assess for electrolyte abnormality, hepatic function, and renal function. Lipase will be obtained to assess for pancreatitis. Lab Data Attestation: I reviewed the patient's lab results. Lab results narrative: CBC was reviewed. There is a mild leukocytosis of 15.6. Hemoglobin was 16.7 and hematocrit was 46.6. Platelets were normal. Comprehensive metabolic profile was reviewed. This was essentially within normal limits. Lipase was reviewed and was normal at 47. Labs: Laboratory Results - last 24 hr 10/01/22 10/01/22 19:50 19:50 WBC 15.6 H RBC 5.32 Hgb 16.7 H Hct 46.6 MCV 87.6 MCH 31.4 MCHC 35.8 RDW Std Deviation 37.1 RDW Coeff of Saeed 11.5 L Plt Count 273 MPV 9.0 Immature Gran % (Auto) 0.300 Neut % (Auto) 89.0 H Lymph % (Auto) 7.7 L [place] % (Auto) 2.6 Eos % (Auto) 0.2 Baso % (Auto) 0.2 Absolute Neuts (auto) 13.9 H Absolute Lymphs (auto) 1.21 Nucleated RBC % 0 Sodium 138 Potassium 4.1 Chloride 106 Carbon Dioxide 27.0 Anion Gap 5 BUN 16 Creatinine 1.11 Estim Creat Clear Calc 88.20 Est GFR (MDRD) Af Amer 100 Est GFR (MDRD) Non-Af 83 BUN/Creatinine Ratio 14.4 Glucose 126 H Calcium 10.3 H Total Bilirubin 1.10 H AST 16 ALT 25 Alkaline Phosphatase 63 Total Protein 8.5 H Albumin 4.9 Globulin 3.6 Albumin/Globulin Ratio 1.4 Lipase 47 Treatment and Re-Evaluation :: Patient was given IV fluids, morphine, and Zofran. Patient is feeling better on reevaluation. Patient was instructed to start with a liquid diet and advance as tolerated. 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 Patient understood and was agreeable with the plan. All questions were answered. Discharge Plan Triage Chief Complaint: Nausea/Vomiting ED Provider: Richard Miller Dx/Rx/DC Orders Clinical Impression: Nausea and vomiting Instructions: ED Vomiting (Adult) Prescriptions: No Action cholestyramine (with sugar) 4 gram powder 4 g PO DAILY Qty: 348.6 2RF Rx Instructions: avoid other meds within 1hr before or 4-6hr after dose pantoprazole 40 mg tablet,delayed release (DR/EC) 40 mg PO DAILY Qty: 90 1RF Primary Care Provider: Radha Eugene Referrals: Radha Eugene MD [Primary Care Provider] - 5-7 Days Makenna Llanes DIRECTOR CLIENT SERVICES, DIRECTOR CLIENT SERVICES-C [Med Staff - [facility] Prof] - 3-5 Days Disposition Disposition: Home, Self Care
[2022-10-01] MEDS: Ondansetron 4 MG/2 ML Vial IV (19:56)
[2022-10-01] MEDS: 0.9% Normal Saline 1,000 ML 1000 ML IV (19:56)
[2022-10-01 19:57] LABS: Absolute Lymphocyte Count 1.21 X10^3/uL (0.83-4.51); Absolute Neutrophil Count 13.9 X10^3/uL (2.0-7.7); Basophil# 0.03 X10^3/uL; Basophil% 0.2 % (0-1); Eosinophil# 0.03 X10^3/uL; Eosinophils% 0.2 % (0-5); Hematocrit 46.6 % (40-54); Hemoglobin 16.7 g/dL (13.0-16.5); Lymphocyte # 1.21 X10^3/ul (0.83-4.51); Lymphocyte % 7.7 % (19-41); Mean Corp Hgb Conc 35.8 g/dL (32-36); Mean Corpuscular Hgb 31.4 pg (27.0-32.0); Mean Corpuscular Volume 87.6 fL (80-94); Monocyte# 0.41 X10^3/uL; Monocyte% 2.6 % (0-10); NRBC Flagged by Analyzer 0 % (0-5); Neutrophil # 13.91 X10^3/uL (2.7-7.7); Platelet Count 273 K/mm3 (150-450); RBC Distribution Width CV 11.5 % (11.6-14.6); RBC Distribution Width SD 37.1 fl (35.1-43.9); Red Blood Count 5.32 M/mm3 (4.6-6.2); White Blood Count 15.6 K/mm3 (4.4-11.0)
[2022-10-01 20:11] LABS: ALB/GLOB Ratio 1.4 RATIO (0.9-2.4); AST(SGOT) 16 U/L (15-37); Alanine Aminotransfer ALT/SGPT 25 U/L (16-61); Albumin, Serum 4.9 g/dL (3.2-5.0); Alkaline Phosphatase 63 U/L (45-117); Anion Gap 5 (5-15); BUN 16 mg/dL (7-18); BUN/Creat Ratio 14.4 RATIO (10-20); Calcium,Total 10.3 mg/dL (8.5-10.1); Chloride 106 mmol/L (98-107); Creatinine, Serum 1.11 mg/dL (0.70-1.30); EST Glomerular Filtration Rate 83 mL/min (>60); Est Glom Filt Rate - Afr Amer 100 mL/min (>60); Globulin 3.6 g/dL (2.2-4.2); Glucose 126 mg/dL (74-106); Lipase 47 U/L (13-75); Potassium 4.1 mmol/L (3.5-5.1); Protein, Total 8.5 g/dL (6.4-8.2); Sodium Level 138 mmol/L (136-145)
[2022-10-01] MEDS: Morphine 4 MG/ML Syringe IV (20:24)
[2022-10-01 21:25] VITALS: BP 128/88; PULSE 89; RESP 16; O2SAT 97
== END 2022-10-01 21:26 | disposition home or self-care (01) ==
PROVIDERS: Emergency Provider Emergency Medicine; PCP Student in an Organized Health Care Education/Training Program; Visit Provider Emergency Medicine
DX: R11.2 Nausea with vomiting, unspecified (principal); R19.7 Diarrhea, unspecified; R10.9 Unspecified abdominal pain; F17.210 Nicotine dependence, cigarettes, uncomplicated; R07.9 Chest pain, unspecified
CPT/HCPCS: 80053; 83690; 85025; 96361; 96374; 96375; 99283; J7030; A4216; J2405

== ENCOUNTER 2023-11-05 17:09 | Emergency (ER) | payer SELFPAY ==
[2023-11-05 17:10] VITALS: BP 147/93; PULSE 76; RESP 16; TEMP 36.3; O2SAT 100; BMI 19.1
--- NOTE | 2023-11-05 17:45 | EDS_ITS ---
<Statement entered by Dionne Toussaint MD - 11/05/23 21:10> I have personally performed a face to face assessment of the patient and have reviewed the VERONICA Note. Patient present secondary to abdominal pain and vomiting. He has a history of chronic abdominal pain and cyclic vomiting. He states tonight after eating a piece of pizza that he developed increased abdominal pain with vomiting. Patient sitting upright in bed no acute distress. Actively vomiting with retching. Head neck examination largely unremarkable. Heart is regular rate and rhythm. Lung sounds are clear. Abdomen is soft with mild diffuse tenderness. No focal findings and no guarding or rebound. Patient received IV fluids along with Bentyl, Zofran, morphine, and Pepcid. CBC and chemistry studies are unremarkable. LFTs and lipase are normal. On repeat evaluation patient looks more comfortable, however stated he was still in pain and having vomiting. He was given a dose of Benadryl and Reglan. At this time symptoms seem to have significantly improved. He is given prescriptions for Protonix, Reglan, Carafate, and Bentyl. Abdominal examination is benign and I do not feel he needs imaging studies. Return instructions given. HPI History of Present Illness Chief Complaint: Nausea/Vomiting Narrative Narrative: Patient is a 32-year-old male with history of cyclic vomiting syndrome, chronic abdominal pain. Patient also has history of polydrug abuse, chronic marijuana abuse. Patient has not drink alcohol in greater than 1 year. Patient at this time does not see a PCP or a GI specialist. Last time the patient saw a GI specialist was September 2022. Patient states that 2 hours prior to arrival he ate a piece of pizza, and then has started having nonstop vomiting. Patient states that he is feeling hot and cold, he states that the vomit is more darker, he is concerned there might be blood. He also states that the abdominal pain is worse than usual. He states he still does use marijuana daily. However he is, this is not the reason. [facility] Medical History (Updated 11/05/23 @ 20:02 by NIGEL Hathaway) GERD (gastroesophageal reflux disease) Coffee ground emesis Cholecystectomy planned Gastritis Home Medications ?Medication ?Instructions ?Recorded ?Last Taken ?Type cholestyramine (with sugar) 4 gram 4 g PO DAILY #348.6 grams 09/21/22 Unknown Rx oral powder pantoprazole 40 mg tablet,delayed 40 mg PO DAILY #90 tabs 09/26/22 Unknown Rx release dicyclomine 20 mg tablet 20 mg PO TID #20 tabs 11/05/23 Unknown Rx metoclopramide HCl 10 mg tablet 10 mg PO Q6H PRN nausea and 11/05/23 Unknown Rx (Reglan) vomiting #20 tabs pantoprazole 40 mg tablet,delayed 40 mg PO DAILY #30 tabs 11/05/23 Unknown Rx release sucralfate 1 gram tablet (Carafate) 1 g PO BID #30 tabs 11/05/23 Unknown Rx Allergy/AdvReac Type Severity Reaction Status Date / Time Penicillins Allergy Rash Verified 11/05/23 17:11 cephalexin (From Keflex) AdvReac Rash Verified 11/05/23 17:11 Surgical History (Updated 10/01/22 @ 19:[address] Richard Miller, ) Hx of cholecystectomy Hx of appendectomy Social History household members: significant other Smoking Status: Current every day smoker tobacco type: cigarettes alcohol intake: former substance use type: marijuana ROS ROS ED ROS Narrative Constitutional: Negative for fever, chills, weight loss, weakness. Positive for diaphoresis Eyes: Negative for vision loss, vision change, double vision ENT: Negative for any sore throat, ear pain, congestion Cardiovascular: Negative for any chest pain, tightness, palpitations Respiratory: Negative for any cough, sputum production, hemoptysis, dyspnea, dyspnea on exertion, orthopnea Gastrointestinal: Negative for any diarrhea, constipation, blood in stool, blood in vomit. Positive for abdominal pain, nausea and vomiting : Negative for any urinary frequency, dysuria, retention, blood in urine Muscle skeletal: Negative for any neck pain, back pain Neurological: Negative for any headache, syncope, dizziness Skin: Negative for any rashes, itching, abrasions, lacerations Psychiatric: Negative for any depression, anxiety, stress, suicidal ideation, homicidal ideation Hematologic: Negative for any excessive bruising, easy bleeding EXAM Physical Exam Narrative Exam Narrative: Vital signs reviewed. On my initial evaluation, it was difficult secondary to patient continuing vomiting and retching. Patient is diaphoretic. Patient does have some dark vomit however there is no marga bleeding, I do not see any coffee-ground emesis. HEET: Head normocephalic atraumatic, TMs clear bilaterally. Posterior pharynx is clear, moist mucous membranes. Nares clear bilaterally. Neck: Supple with no lymphadenopathy or tenderness. No signs of meningismus. Cardiac: Regular rate and rhythm no murmurs gallops or rubs, equal peripheral pulses bilaterally. Respiratory: Lungs clear to auscultation bilaterally. No chest tenderness. Abdomen: Soft, nondistended. No abdominal bruit or pulsatile masses. No hepatosplenomegaly. Tenderness to the upper abdomen, this is diffuse. No peritoneal signs Extremities: No peripheral edema, no signs of gross trauma or deformity. Active full range of motion of all extremities. Neuro: Cranial nerves II through XII intact, no focal neurological deficits. Skin: Clean dry and intact with no rash, purpura, petechiae, vesicles or pustules. Backs/flank: No CVA tenderness, no midline spinal tenderness, no deformity. Psych: Normal mood and affect. No SI, HI or acute psychosis. Const Vital Signs: 11/05/23 17:10 11/05/23 18:52 Temperature 97.4 F L Temperature Source Temporal Pulse Rate 76 51 L Respiratory Rate 16 16 Blood Pressure 147/93 H 126/77 H Blood Pressure Mean 111 93 Pulse Ox 100 98 Oxygen Delivery Method Room Air Room Air [facility] Lab Data Labs: Laboratory Results - last 24 hr 11/05/23 17:55 WBC 9.9 RBC 5.08 Hgb 15.6 Hct 45.2 MCV 89.0 MCH 30.7 MCHC 34.5 RDW Std Deviation 36.5 RDW Coeff of Saeed 11.3 L Plt Count 212 MPV 8.9 Immature Gran % (Auto) 0.300 Neut % (Auto) 78.4 H Lymph % (Auto) 17.6 L [place] % (Auto) 3.0 Eos % (Auto) 0.4 Baso % (Auto) 0.3 Absolute Neuts (auto) 7.7 Absolute Lymphs (auto) 1.74 Nucleated RBC % 0 Sodium 140 Potassium 4.2 Chloride 106 Carbon Dioxide 26.0 Anion Gap 8 BUN 23 H Creatinine 0.96 Estim Creat Clear Calc 96.37 Est GFR (MDRD) Af Amer 118 Est GFR (MDRD) Non-Af 98 BUN/Creatinine Ratio 24.0 H Glucose 119 H Calcium 9.5 Total Bilirubin 0.90 AST 20 ALT 28 Alkaline Phosphatase 53 Total Protein 7.9 Albumin 4.7 Globulin 3.2 Albumin/Globulin Ratio 1.5 Lipase 74 Treatment and Re-Evaluation :: Differential diagnosis includes however is not limited to: Acute on chronic abdominal pain, cyclic vomiting syndrome, cannabinoid hyperemesis, bowel obstruction, acute cholecystitis Patient appears to be in mild distress secondary to the vomiting. Patient's vital signs are stable. Patient appears nontoxic. Patient will receive some basic laboratory values look for any leukocytosis, liver abnormality, liver enzymes. Patient will receive IV fluids, 2 L normal saline, IM Bentyl, IV Zofran, morphine, Pepcid. Patient will be reevaluated as well as reexamined at that time. Patient CBC was unremarkable, patient's chemistries were unremarkable, normal kidney function, lipase was negative, negative for any transaminitis. Patient states he still had some symptoms, patient was then redosed with Reglan Benadryl. Patient will be given p.o. challenge, as long as he able to keep p.o. fluids down, he will be discharged home. Discharge Plan Triage Chief Complaint: Nausea/Vomiting ED Midlevel Provider: Francisco Banks ED Provider: Dionne Toussaint Dx/Rx/DC Orders Clinical Impression: Cyclic vomiting syndrome Instructions: ED Cyclic Vomiting Syndrome Prescriptions: New pantoprazole 40 mg tablet,delayed release (DR/EC) 40 mg PO DAILY Qty: 30 2RF metoclopramide HCl [Reglan] 10 mg tablet 10 mg PO Q6H PRN (Reason: nausea and vomiting) Qty: 20 0RF sucralfate [Carafate] 1 gram tablet 1 g PO BID Qty: 30 2RF dicyclomine 20 mg tablet 20 mg PO TID Qty: 20 0RF No Action cholestyramine (with sugar) 4 gram powder 4 g PO DAILY Qty: 348.6 2RF Rx Instructions: avoid other meds within 1hr before or 4-6hr after dose pantoprazole 40 mg tablet,delayed release (DR/EC) 40 mg PO DAILY Qty: 90 1RF Primary Care Provider: Radha Eugene Referrals: Deep White DO [Med Staff - Active Staff] - Radha Eugene MD [Primary Care Provider] - Print Language: Bulgarian Disposition Disposition: Home, Self Care
[2023-11-05] MEDS: Morphine 4 MG/ML Syringe IV (17:57)
[2023-11-05] MEDS: Ondansetron 4 MG/2 ML Vial IV (17:57)
[2023-11-05] MEDS: 0.9% Normal Saline (1000mL) 1,000 ML 999 ML IV ×2 (17:57→18:52)
[2023-11-05] MEDS: Dicyclomine 20 MG/2 ML Vial IM (17:57)
[2023-11-05 18:02] LABS: Absolute Lymphocyte Count 1.74 X10^3/uL (0.83-4.51); Absolute Neutrophil Count 7.7 X10^3/uL (2.0-7.7); Basophil# 0.03 X10^3/uL; Basophil% 0.3 % (0-1); Eosinophil# 0.04 X10^3/uL; Eosinophils% 0.4 % (0-5); Hematocrit 45.2 % (40-54); Hemoglobin 15.6 g/dL (13.0-16.5); Lymphocyte # 1.74 X10^3/ul (0.83-4.51); Lymphocyte % 17.6 % (19-41); Mean Corp Hgb Conc 34.5 g/dL (32-36); Mean Corpuscular Hgb 30.7 pg (27.0-32.0); Mean Platelet Vol. 8.9 fl (6.2-12.0); NRBC Flagged by Analyzer 0 % (0-5); Neutrophil # 7.73 X10^3/uL (2.7-7.7); Neutrophil % 78.4 % (47-70); Platelet Count 212 K/mm3 (150-450); RBC Distribution Width CV 11.3 % (11.6-14.6); RBC Distribution Width SD 36.5 fl (35.1-43.9); Red Blood Count 5.08 M/mm3 (4.6-6.2); White Blood Count 9.9 K/mm3 (4.4-11.0)
[2023-11-05] MEDS: Famotidine 200 MG/20 ML MDV 20 MG in 0.9% Normal Saline (Pres. free 8 ML 300 MG IV (18:07)
[2023-11-05 18:17] LABS: ALB/GLOB Ratio 1.5 RATIO (0.9-2.4); AST(SGOT) 20 U/L (15-37); Alanine Aminotransfer ALT/SGPT 28 U/L (16-61); Albumin, Serum 4.7 g/dL (3.2-5.0); Alkaline Phosphatase 53 U/L (45-117); Anion Gap 8 (5-15); BUN 23 mg/dL (7-18); Calcium,Total 9.5 mg/dL (8.5-10.1); Chloride 106 mmol/L (98-107); Creatinine, Serum 0.96 mg/dL (0.70-1.30); EST Glomerular Filtration Rate 98 mL/min (>60); Est Glom Filt Rate - Afr Amer 118 mL/min (>60); Estimated Creatinine Clearance 96.37 ml/min; Globulin 3.2 g/dL (2.2-4.2); Glucose 119 mg/dL (74-106); Lipase 74 U/L (13-75); Potassium 4.2 mmol/L (3.5-5.1); Protein, Total 7.9 g/dL (6.4-8.2); Sodium Level 140 mmol/L (136-145)
[2023-11-05 18:52] VITALS: BP 126/77; PULSE 51; RESP 16; O2SAT 98
[2023-11-05] MEDS: Metoclopramide 10 MG/2 ML Vial IV (19:34)
[2023-11-05] MEDS: DiphenhydrAMINE 50 MG/ML Syringe 25 MG IV (19:34)
[2023-11-05 20:23] VITALS: BP 119/95; PULSE 85; RESP 17; TEMP 36.8; O2SAT 98
== END 2023-11-05 20:26 | disposition home or self-care (01) ==
PROVIDERS: Nurse Practitioner; Emergency Provider Emergency Medicine; PCP Student in an Organized Health Care Education/Training Program; Visit Provider Emergency Medicine
DX: R11.15 Cyclical vomiting syndrome unrelated to migraine (principal); F17.210 Nicotine dependence, cigarettes, uncomplicated; K21.9 Gastro-esophageal reflux disease without esophagitis; Z79.899 Other long term (current) drug therapy
CPT/HCPCS: 80053; 83690; 85025; 96365; 96366; 96375; 99284; J7030; A4216; J2405; J3490